=== PATIENT | male | born 1975 | race Caucasian/White ===

== ENCOUNTER 2022-01-15 19:48 | Emergency (ER) | payer SELFPAY ==
--- OUTSIDE RECORDS SUMMARY | 2022-01-15 20:20 | XMS REPORT | Clinical Summary ---
:1975 Author Organization [facility] Address [address] [place] [id number] Care Team Providers Name Role Phone Unavailable Primary Care Provider Unavailable Allergies Not on File Medications Not on file Active Problems Not on file Encounters Date Type Specialty Care Team Description 10/13/2021 Telephone Patient Access Services Albert Adams RN after 01/15/2021 Social History Tobacco Use Types Packs/Day Years Used Date Never Assessed Sex Assigned at Date Recorded Not on file Last Filed Vital Signs Not on file Plan of Treatment Not on file Results Not on fileafter 01/15/2021
--- OUTSIDE RECORDS SUMMARY | 2022-01-15 20:21 | XMS REPORT | Continuity of Care Document ---
:1975 Author Organization [facility] t Address [facility] [place] [address] Care Team Providers Name Role Phone PCP, NO Primary Care Physician Unavailable Albert Adams RN Attending Clinician Unavailable CURT KUNZ Attending Clinician Unavailable LEONEL MARTINO Attending Clinician Unavailable LIZETH HARMON Attending Clinician Unavailable TARAS BALTAZAR Attending Clinician Unavailable DR PREMA VO Attending Clinician Unavailable HELLEN THOMAS Attending Clinician Unavailable SAWYER RYAN Attending Clinician Unavailable KEVIN ACOSTA Attending Clinician Unavailable PATRICK AGARWAL Attending Clinician Unavailable RAYA ADAME Attending Clinician Unavailable ELISHA ROBERTSON Attending Clinician Unavailable CURT KUNZ Admitting Clinician Unavailable DR PREMA VO Admitting Clinician Unavailable Payers Payer Name Policy Type Policy Number Effective Date Expiration Date Lj samuels [id number] 1958 00:00:00 Problems Condition Condition Condition Status Onset Resolution Last Treating Co mments Source Name Details Category Date Date Treatment Clinician Date Periorbita Periorbita Disease Active M ethodi l l 9-15 st cellulitis cellulitis 00:00: Ho spita of left of left 00 l eye eye Allergies, Adverse Reactions, Alerts This patient has no known allergies or adverse reactions. Social History Social Habit Start Date Stop Date Quantity Comments Source History of tobacco [facility] use History [facility] Alcohol Binge Hospital History [facility] Alcohol Std Drinks Hospit al Alcohol intake 2020-11-11 2020-11-11 Lifetime [facility]ae[facility] 00:00:00 00:00:00 non-drinker Hospital (finding) History [facility] 2020-07-21 2020-07-21 1 [facility] Alcohol Frequency 00:00:00 00:00:00 Hospita l Cigarettes smoked 2018-10-21 2018-10-[address] current (pack per 00:00:00 00:00:00 Hospita l day) - Reported Tobacco use and 2018-10-21 2018-10-21 Smokeless [facility] exposure 00:00:00 00:00:00 tobacco non-user Hospital Sex Assigned At [birth year] [facility]00 [place] [facility] Center Smoking Status Start Date Stop Date Source Current some day smoker [facility] (LUF/ERIKA/SA) Current Heavy tobacco 2021-09-23 18:49:00 [facility] smoker Smokes tobacco daily 2021-08-31 07:06:00 [facility] (finding) Medications Ordered Filled Start Stop Current Ordering Indication Dosage Frequency Signature Comments Components Source Medication Medication Date Date Medication? Clinician (SIG) Name Name Naproxen No 275mg Twice A LISANDRO TU (Anaprox) - Day as S 275 Mg TAB 22:32: needed for H ealth 00 Pain Rivaroxaban No 1 As KATHLEEN U (Xarelto 5-06 Directed S Starter 22:32: Health Mateus) 1 Each 00 TAB.DS.PK Methylpredn 2021-0 No 1 As KATHLEEN U isolone 4-13 Directed S (Medrol 10:00: Health Pack) 21 00 Tab TAB Methylpredn 2021-0 No 1 As KATHLEEN U isolone 4-13 Directed S (Medrol 10:00: Health Pack) 21 00 Tab TAB Methylpredn 2021-0 No 1 As KATHLEEN U isolone 4-13 Directed S (Medrol 10:00: Health Pack) 21 00 Tab TAB Hctz/Lisino 2021-0 No 1 Daily for C HRISTU pril 4-13 Htn S (Zestoretic 09:09: Health 20-12.5) 1 00 Tab TAB Hctz/Lisino 2021-0 No 1 Daily for C HRISTU pril 4-13 Htn S (Zestoretic 09:09: Health 20-12.5) 1 00 Tab TAB Hctz/Lisino 2021-0 No 1 Daily for C HRISTU pril 4-13 Htn S (Zestoretic 09:09: Health 20-12.5) 1 00 Tab TAB Albuterol 2021-0 No 2 Every 4 LISANDRO TU 90 Mcg/Act 4-13 Hours as S Hfa Inh 09:08: needed for Heal th (Proair Hfa 00 Shortness Inh) 8.5 Gm Of HFA.AER.AD Breath/Whe ezing Benzonatate 0 No 200mg Three CHRI CAMPOS (Tessalon) 4-13 Times A S 200 Mg CAP 09:08: Day as Healt h 00 needed for Cough Albuterol 2021-0 No 2 Every 4 LISANDRO TU 90 Mcg/Act 4-13 Hours as S Hfa Inh 09:08: needed for Heal th (Proair Hfa 00 Shortness Inh) 8.5 Gm Of HFA.AER.AD Breath/Whe ezing Benzonatate 2021-0 No 200mg Three CHRI CAMPOS (Tessalon) 4-13 Times A S 200 Mg CAP 09:08: Day as Healt h 00 needed for Cough Albuterol 2021-0 No 2 Every 4 LISANDRO TU 90 Mcg/Act 4-13 Hours as S Hfa Inh 09:08: needed for Heal th (Proair Hfa 00 Shortness Inh) 8.5 Gm Of HFA.AER.AD Breath/Whe ezing Benzonatate No 200mg Three [facility]RI CAMPOS (Tessalon) 4-13 Times A S 200 Mg CAP 09:08: Day as Healt h 00 needed for Cough Albuterol Albuterol Yes [address] Q5[address]H [facility] 90 90 4-13 [facility] mcg/actuati mcg/actuati 00:00: [facility] on Aerosol on Aerosol 00 l (LUF/LI V/SA) Albuterol Albuterol Yes [address] [facility] 90 90 4-13 every 4 to [facility] mcg/actuati mcg/actuati 00:00: 6 hours as Memoria on Aerosol on Aerosol 00 needed. l (LUF/LI V/SA) Ibuprofen No 600mg Tid With CHR ISTU (Motrin) 3-02 Meals & Hs S 600 Mg TAB 19:22: as needed He alth 00 for Pain Methylpredn No 1 As KATHLEEN U isolone 3-02 Directed S (Medrol 19:22: Health Pack) 21 00 Tab TAB Methylpredn 0 No 1 As KATHLEEN U isolone 3-02 Directed S (Medrol 19:22: Health Pack) 21 00 Tab TAB Methylpredn 2021-0 No 1 As KATHLEEN U isolone 3-02 Directed S (Medrol 19:22: Health Pack) 21 00 Tab TAB Methylpredn 2021-0 No 1 As KATHLEEN U isolone 3-02 Directed S (Medrol 19:22: Health Pack) 21 00 Tab TAB Ibuprofen 0 2021- No 600mg Tid With CH RISTU (Motrin) 07-20 04-02 Meals & Hs S 600 Mg TAB 19:22: 00:00 as needed H ealth 00 :00 for Pain Ibuprofen 2021-0 2021- No 600mg Tid With CH RISTU (Motrin) 07-20 04-02 Meals & Hs S 600 Mg TAB 19:22: 00:00 as needed H ealth 00 :00 for Pain Ibuprofen 2021-0 2021- No 600mg Tid With CH RISTU (Motrin) 07-20 04-02 Meals & Hs S 600 Mg TAB 19:22: 00:00 as needed H ealth 00 :00 for Pain No known No No known Metho di medications 6-[address] 01:08: s Hospita 35 l allopurinol allopurinol Yes [address] 100 MG Oral 100 MG Oral L ukes Tablet Tablet Memoria l (LUF/LI V/SA) amlodipine amlodipine Yes 5mg 1xD [facility] 5 MG Oral 5 MG Oral [facility] Tablet Tablet [facility] (LUF/LI V/SA) aspirin 81 aspirin 81 Yes 81mg 1xD [facility] mg chewable mg chewable L ukes tablet tablet Memoria l (LUF/LI V/SA) atorvastati atorvastati Yes [address] n 40 MG n 40 MG [facility] Oral Tablet Oral Tablet M emoria l (LUF/LI V/SA) allopurinol allopurinol Yes [address] 100 MG Oral 100 MG Oral ONCE A DAY [facility] Tablet Tablet [facility] (LUF/LI V/SA) amlodipine amlodipine Yes 5mg 1xD orally C [facility] 5 MG Oral 5 MG Oral daily [facility] s Tablet Tablet Memoria l (LUF/LI V/SA) aspirin 81 aspirin 81 Yes 81mg 1xD orally C [facility] mg chewable mg chewable daily [facility] tablet tablet Memoria l (LUF/LI V/SA) atorvastati atorvastati Yes 80 Q2.00W BY MOUTH [facility] n 40 MG n 40 MG EVERY [facility] Oral Tablet Oral Tablet NIGHT AT [facility] BED TIME l (LUF/LI V/SA) Immunizations Ordered Immunization Filled Immunization Date Status Commen Source Name Name COVID-19 vaccine, 2020-11-26 Completed [facility] vector-nr, rS-Ad26, 00:00:00 PF, COVID-19 vaccine, 2020-11-26 Completed [facility] vector-nr, rS-Ad26, 00:00:00 PF, COVID-19 vaccine, 2020-11-26 Completed [facility] vector-nr, rS-Ad26, 00:00:00 PF, FLUCELVAX QUAD PF 2017-02-[address] 00:00:00 Hospital Pneumococcal 2017-02-03 Completed [facility] Conjugate 13-Valent 00:00:00 Hospi eugene Vital Signs Vital Name Observation Time Observation Value Comments Source Height 2021-10-12 08:42:00 182.88 CM Weight 2021-10-12 08:42:00 110 KG Height 2021-09-18 09:00:00 182.88 CM Weight 2021-09-18 08:24:00 115.1 KG Respiratory Rate 2021-10-12 11:46:00 16 /min [facility] (LUF/ERIKA/SA) O2% BldC Oximetry 2021-10-12 11:46:00 98 % [facility] (LUF/ERIKA/SA) BP Systolic 2021-10-12 11:46:00 147 mm[Hg] [facility] (LUF/ERIKA/SA) BP Diastolic 2021-10-12 11:46:00 106 mm[Hg] [facility] (LUF/ERIKA/SA) Heart Rate 2021-10-12 10:31:00 82 /min [facility] (F/ERIKA/SA) Body Temperature 2021-10-12 08:42:00 98.3 [degF] [facility] (LUF/ERIKA/SA) Pulse Rate 2021-10-12 08:42:00 78 /min [facility] (F/ERIKA/SA) Height 2021-10-12 08:42:00 72 [in_i] [facility] (LUF/ERIKA/SA) Weight 2021-10-12 08:42:00 110 kg [facility] (LUF/ERIKA/SA) BMI (Body Mass Index) 2021-10-12 08:42:00 33.2 kg/m2 [facility] (LUF/ERIKA/SA) BP Diastolic 2021-09-23 22:59:00 94 mm[Hg] [facility] BP Systolic 2021-09-23 22:59:00 154 mm[Hg] [facility] Heart Rate 2021-09-23 22:59:00 64 /min [facility] Respiratory rate 2021-09-23 22:59:00 19 /min [facility] Body Temperature 2021-09-23 22:59:00 97.9 [degF] [facility] BP Diastolic 2021-09-23 18:47:00 94 mm[Hg] [facility] BP Systolic 2021-09-23 18:47:00 154 mm[Hg] [facility] Heart Rate 2021-09-23 18:47:00 64 /min [facility] Respiratory rate 2021-09-23 18:47:00 19 /min [facility] Body Temperature 2021-09-23 18:47:00 97.9 [degF] [facility] Body Temperature 2021-09-18 16:51:00 98.4 [degF] [facility] (LUF/ERIKA/SA) Heart Rate 2021-09-18 16:01:00 67 /min [facility] (LUF/ERIKA/SA) Pulse Rate 2021-09-18 16:01:00 66 /min [facility] (LUF/ERIKA/SA) Respiratory Rate 2021-09-18 16:01:00 16 /min [facility] (LUF/ERIKA/SA) O2% BldC Oximetry 2021-09-18 16:01:00 97 % [facility] (LUF/ERIKA/SA) BP Systolic 2021-09-18 16:01:00 142 mm[Hg] [facility] (LUF/ERIKA/SA) BP Diastolic 2021-09-18 16:01:00 66 mm[Hg] [facility] (LUF/ERIKA/SA) Height 2021-09-18 09:00:00 72 [in_i] [facility] (LUF/ERIKA/SA) Weight 2021-09-18 08:24:00 115.1 kg [facility] (LUF/ERIKA/SA) BP Diastolic 2021-09-18 06:10:00 78 mm[Hg] [facility] BP Systolic 2021-09-18 06:10:00 122 mm[Hg] [facility] Heart Rate 2021-09-18 06:10:00 58 /min [facility] Respiratory rate 2021-09-18 06:10:00 16 /min [facility] 2021-09-18 06:10:00 98.0 [degF] [facility] BP Diastolic 2021-09-18 03:44:00 67 mm[Hg] [facility] BP Systolic 2021-09-18 03:44:00 117 mm[Hg] [facility] Heart Rate 2021-09-18 03:44:00 56 /min [facility] Respiratory rate 2021-09-18 03:44:00 12 /min [facility] BP Diastolic 2021-09-18 03:15:00 73 mm[Hg] [facility] BP Systolic 2021-09-18 03:15:00 105 mm[Hg] [facility] Heart Rate 2021-09-18 03:15:00 62 /min [facility] Respiratory rate 2021-09-18 03:15:00 13 /min [facility] BP Diastolic 2021-09-18 02:45:00 57 mm[Hg] [facility] BP Systolic 2021-09-18 02:45:00 99 mm[Hg] [facility] Heart Rate 2021-09-18 02:45:00 60 /min [facility] Respiratory rate 2021-09-18 02:45:00 14 /min [facility] BP Diastolic 2021-09-18 02:15:00 55 mm[Hg] [facility] BP Systolic 2021-09-18 02:15:00 102 mm[Hg] [facility] Heart Rate 2021-09-18 02:15:00 65 /min [facility] Respiratory rate 2021-09-18 02:15:00 11 /min [facility] BP Diastolic 2021-09-18 01:45:00 52 mm[Hg] [facility] BP Systolic 2021-09-18 01:45:00 90 mm[Hg] [facility] Heart Rate 2021-09-18 01:45:00 66 /min [facility] Respiratory rate 2021-09-18 01:45:00 12 /min [facility] BP Diastolic 2021-09-18 01:15:00 55 mm[Hg] [facility] BP Systolic 2021-09-18 01:15:00 105 mm[Hg] [facility] Heart Rate 2021-09-18 01:15:00 68 /min [facility] Respiratory rate 2021-09-18 01:15:00 18 /min [facility] Body Temperature 2021-09-18 01:15:00 98.0 [degF] [facility] BP Diastolic 2021-08-31 10:25:00 80 mm[Hg] [facility] BP Systolic 2021-08-31 10:25:00 150 mm[Hg] [facility] Heart Rate 2021-08-31 10:25:00 62 /min [facility] Respiratory rate 2021-08-31 10:25:00 16 /min [facility] Body Temperature 2021-08-31 10:25:00 97.4 [degF] [facility] BP Diastolic 2021-08-31 09:08:00 80 mm[Hg] [facility] BP Systolic 2021-08-31 09:08:00 150 mm[Hg] [facility] Heart Rate 2021-08-31 09:08:00 62 /min [facility] Respiratory rate 2021-08-31 09:08:00 16 /min [facility] BP Diastolic 2021-08-31 07:02:00 105 mm[Hg] [facility] BP Systolic 2021-08-31 07:02:00 191 mm[Hg] [facility] Heart Rate 2021-08-31 07:02:00 67 /min [facility] Respiratory rate 2021-08-31 07:02:00 23 /min [facility] Body Temperature 2021-08-31 07:02:00 97.4 [degF] [facility] BP Diastolic 2021-07-20 19:59:00 98 mm[Hg] [facility] BP Systolic 2021-07-20 19:59:00 155 mm[Hg] [facility] Heart Rate 2021-07-20 19:59:00 73 /min [facility] Respiratory rate 2021-07-20 19:59:00 20 /min [facility] Body Temperature 2021-07-20 19:59:00 97.8 [degF] [facility] BP Diastolic 2021-07-20 19:00:00 98 mm[Hg] [facility] BP Systolic 2021-07-20 19:00:00 155 mm[Hg] [facility] Heart Rate 2021-07-20 19:00:00 73 /min [facility] Respiratory rate 2021-07-20 19:00:00 20 /min [facility] Body Temperature 2021-07-20 19:00:00 97.8 [degF] [facility] BP Diastolic 2021-07-20 18:55:00 98 mm[Hg] [facility] BP Systolic 2021-07-20 18:55:00 155 mm[Hg] [facility] Heart Rate 2021-07-20 18:55:00 73 /min [facility] Respiratory rate 2021-07-20 18:55:00 20 /min [facility] Body Temperature 2021-07-20 18:55:00 97.8 [degF] [facility] Procedures Procedure Date / Time Performed Performing Clinician [facility] e ECG (electrocardiogram) 2021-09-23 00:00:00 [facility] X-ray of chest, single 2021-09-23 00:00:00 [facility] view X-ray of forearm, two 2021-09-23 00:00:00 [facility] Computed tomography 2021-09-23 00:00:00 [facility] angiography of pulmonary artery ECG (electrocardiogram) 2021-09-18 00:00:00 [facility] X-ray of chest, single 2021-09-18 00:00:00 [facility] view Hopd covid-19 spec collect 2021-09-18 00:00:00 [facility] X-ray of chest, single 2021-08-31 00:00:00 [facility] view ECG (electrocardiogram) 2021-08-31 00:00:00 [facility] Computed tomography of 2021-08-31 00:00:00 [facility] head or brain without contrast Plan of Care Planned Activity Planned Date Details Comments Source Future Scheduled 2022-01-13 HEPATITIS B VACCINES [facility] Test 04:10:23 (1 of 3 - 3-dose series) [code = HEPATITIS B VACCINES (1 of 3 - 3-dose series)] Future Scheduled 2022-01-13 COVID-19 VACCINE (#1) [facility] Test 04:10:23 [code = COVID-19 VACCINE (#1)] Future Scheduled 2022-01-13 Hepatitis C screening [facility] Test 04:10:23 (procedure) [code = 338572094] Future Scheduled 2022-01-13 Pneumococcal Vaccine: [facility] Test 04:10:23 Pediatrics (0 to 5 Years) and At-Risk Patients (6 to 64 Years) (2 - PPSV23 or PCV20) [code = Pneumococcal Vaccine: Pediatrics (0 to 5 Years) and At-Risk Patients (6 to 64 Years) (2 - PPSV23 or PCV20)] Future Scheduled 2022-01-13 COLONOSCOPY SCREENING [facility] Test 04:10:23 [code = COLONOSCOPY SCREENING] Future Scheduled 2022-01-13 INFLUENZA VACCINE [facility] Test 04:10:23 [code = INFLUENZA VACCINE] Encounters Start End Encounter Admission Attending Care Care Encounter Source Date/Time Date/Time Type Type Clinicians Facility Department ID 2021-10-13 2021-10-13 Telephone Bryan, [id number] 00:00:00 00:00:00 Albert [id number] i ty of S [id number] [place] [id number] [facility] 2021-10-12 2021-10-12 Inpatient 1 [facility] [id number] [facility] 08:23[facility]00 [facility] [address] ([address], V/SA) [place] [address] 2021-10-12 2021-10-12 Inpatient [place] [id number] [facility] St 00:00:00 00:00:00 [facility] [id number] [facility], [id number] [facility] [id number]F/[address], V/SA) [place] [address] 2021-10-02 2021-10-02 Emergency ER ARNIE MARTINO [id number] [facility] 01:35:00 05:48:00 LEONEL [id number] [facility] 2021-09-24 2021-09-25 Emergency E FAUSTINO, BL BL 7503 MHBL 19:50:00 04:10:00 [facility] 2021-09-23 2021-09-23 Emergency ER ARNIE BALTAZAR [id number] [facility] 18:42:00 22:57:00 TARAS [id number] [facility] 2021-09-23 2021-09-23 Departed JENELLE Coker [id number] [facility] 18:42:00 22:57:[address] 2021-09-18 2021-09-18 OTHER 3 MOPUR, [facility] [id number] 09:48:00 18:28:00 CHEST PAIN PREMA [facility] [address] ([address], V/SA) [place] [address] 2021-09-18 2021-09-18 Emergency ER ARNIE THOMAS [id number] [facility] 01:08:00 06:12:00 [facility] [id number] [facility] 2021-09-18 2021-09-18 Departed JENELLE Coker [id number] [facility] 01:08:00 06:12:[address] 2021-09-18 2021-09-18 Inpatient [facility] [id number] 00:00:00 00:00:00 [facility] [id number] [facility], [id number] Memor ia [id number] ([address]F/[address], V/[place]) [place] [address] 2021-09-18 2021-09-18 Inpatient [facility] [id number] 00:00:00 00:00:00 [facility] [id number] [facility], [id number] Memor ia [id number] ([address]F/[address] A[address], V/[place]) [place] [address] 2021-09-18 2021-09-18 Inpatient [facility] 1238 [id number] 00:00:00 00:00:00 [facility] [id number] [facility], [id number] Memor ia [address] [id number] ([address]F/LI A[address], V/[place]) [place] [address] 2021-09-18 2021-09-18 Inpatient [facility] OF [place] [id number] [facility] St 00:00:00 00:00:00 [facility] [id number] [facility], [id number] [facility] [id number] (LUF/SRAVANTHI MILLERE, V/[place]) [place] [address] 2021-08-31 2021-08-31 Emergency ER SAWYER RYAN ARNIE 16 [id number] [facility] 06:59:00 10:24:00 [id number] [facility] 2021-08-31 2021-08-31 Departed JENELLE Coker [id number] [facility] 06:59:00 10:24:[address] 2021-07-20 2021-07-20 Emergency ER ARNIE ACOSTA [id number] [facility] 18:23:00 20:00:00 KEVIN [id number] [facility] 2021-07-20 2021-07-20 Departed JENELLE Coker [id number] [facility] 18:23:00 20:00:[address] 2020-11-11 2020-11-12 Emergency STEFANO, [facility] 064 [id number] 64 [place] 00:00:00 00:00:00 PATRICK [address] 2020-07-20 2020-07-20 Emergency [facility] [place], [facility] [id number] [address] [place] 00:00:00 00:00:00 RAYA [address] 2020-06-27 2020-06-27 Emergency AILYN, [place] [id number] 749 [place] 00:00:00 00:00:00 ELISHA [address] Results Test Description Test Time Test Comments Results Result Comments Source URINALYSIS WITH MICROSCOPIC 2021-10-12 12:09:00 Test Item Value Reference Range Interpretation Comme nts Color (test code = UCOLR) Light-Yellow Clarity (test code = UCLAR) Clear Glucose (test code = UGLUC) >1000 NEGATIVE A Bilirubin (test code = NEGATIVE NEGATIVE N UBILI) Ketones (test code = UKET) NEGATIVE NEGATIVE N Specific [place] (test code 1.020 1.005-1.030 A = USPGR) Blood (test code = UBLD) Small NEGATIVE A PH (test code = UPH) 6.5 4.5-8.0 A Protein (test code = UPROT) 100 NEGATIVE A Urobilinogen (test code = U 0.2 See_Comment N [Automated message] The UROB) system which ge nerated this result tra nsmitted reference range : 0.2. The reference range was not used to interpr et this result as lydia l/abnormal. Nitrite (test code = UNITR) NEGATIVE NEGATIVE N Leukocyte Esterase (test Small NEGATIVE A code = ULEUK) RBC (test code = RBCUR) 6-10 0-5 A WBC (test code = WBCUR) 11-20 0-5 A Bacteria (test code = UBACT) 2+ None Seen,Trace A Mucous (test code = UMUC) TRACE None Seen A Squamous Epithelial (test 31-40 0-10 A code = SQEP) Non-squamous Epithelial 3 NONE SEEN A (test code = NSE) AMYLASE, [id number] 11:25:00 Test Item Value Reference Range Interpretation Comments Amylase (test code = AMYL) 68 U/L 25-115 [id number] 11:25:00 Test Item Value Reference Range Interpretation Comments Lipase (test code = LIPA) 74 U/L 73-393 HEPATIC FUNCTION PANEL (LIVER)2021-10-12 11:25:00 Test Item Value Reference Range Interpretation Comments T Protein (test code = TP) 7.9 gm/dl 6.4-8.2 Albumin (test code = ALB) 3.7 gm/dl 3.4-5.0 AST (SGOT) (test code = AST) 14 U/L 15-37 L ALT (SGPT) (test code = ALT) 31 U/L 13-61 Alkaline Phos (test code = ALKP) 56 U/L 45-117 Total Bilirubin (test code = TBIL) 0.4 mg/dl 0.2-1.0 Direct Bilirubin (test code = <0.1 mg/dl 0.0-0.3 N DBIL) Indirect Bilirubin (test code = 0.4 mg/dl 0.0-1.1 IBIL) STAT LAB CBC WITH AUTO [id number] 10:58:00 Test Item Value Reference Range Interpretation Comments WBC (test code = WBC) 7.56 10\\S\\3/ul 4.80-10.80 RBC (test code = RBC) 4.90 10\\S\\6/ul 4.70-6.10 Hemoglobin (test code = HGB) 14.9 gm/dl 14.0-18.0 Hematocrit (test code = HCT) 42.7 % 42.0-50.0 MCV (test code = MCV) 87.1 fL 80.0-94.0 MCH (test code = MCH) 30.4 pg 27.0-31.0 MCHC (test code = MCHC) 34.9 gm/dl 33.0-37.0 Platelet (test code = PLT) 312 10\\S\\3/ul 130-400 RDW (test code = RDWVC) 12.5 % 11.5-14.5 MPV (test code = MPV) 8.5 fL 7.4-10.4 A NE% (test code = NE) 64.4 % 42.0-75.0 LY% (test code = LY) 18.0 % 13.0-42.0 MO% (test code = MO) 7.1 % 4.0-14.0 EO% (test code = EO) 8.5 % 1.0-3.0 H BA% (test code = BA) 0.9 % 1.0-3.0 L IG% (test code = IG%) 1.1 % 0.0-0.4 H STAT LAB CHEM [id number] 10:58:00 Test Item Value Reference Range Interpretation Comments Sodium (test code = NA) 135 mmol/l 138-146 L Potassium (test code = K) 4.3 mmol/l 3.5-4.9 IONIZED CALCIUM (test code = ICA) 1.15 1.12-1.32 AA Chloride (test code = CL) 105 mmol/l 98-109 Glucose (test code = GLU) 113 mg/dl 70-105 H Creatinine (test code = CREA) 0.7 mg/dl 0.6-1.3 BUN (test code = BUN) 13 mg/dl 6-17 CO2 (test code = CO2) 23.0 mmol/l 24.0-29.[address] ABDOMEN/PELVIS W/O [id number] 09:55:19 [place] [facility] (LU/[facility]/SA)Name: SÁNCHEZ SHEPHERD : 1975 Sex: MProcedure: CT ABDOMEN/PELVIS W/O CONTRASTOrder Date: 10/12/2021 9:06 AMOrdering Provider: CURT GALLEGOlinical Indication: [id number]: Lower abdominal painComparison: Ultrasound September 18, 2021TECHNIQUE:CT of the abdomen and pelvis WITHOUT intravenous contrast. The abdomen andpelvis were scanned utilizing a multidetector helical scanner from the diaphragmto the lesser trochanter. Coronal and sagittal reformations were obtained.This exam was performed according to the our departmental dose-optimizationprogram which includes automated exposure control, adjustment of the mA and/orkV according to patient s ize and/or use of iterative reconstruction techniques.DISCUSSION:ABSENCE OF INTRAVENOUS CONTRAST DECREASES SENSITIVITY FOR DETECTION OF FOCALLESIONS AND VASCULAR PATHOLOGY.LOWER THORAX: Normal.HEPATOBILIARY: No focal hepatic lesions. There is diffuse hepatic steatosis.Gallbladder is surgically absent.No biliary ductal dilatation.SPLEEN: No splenomegaly.PANCREAS: No focal masses or ductal dilatation.ADRENALS: 1.7 cm nodule in the left adrenal gland. Internal Hounsfield units areless than 10. Right adrenal gland is normal.KIDNEYS/URETERS: There is a solid appearing exophytic mass arising from theupper pole of the left kidney and measures approximately 4.1 x 3.5 cm.There is an additional subcentimeter hyperdense focus arising from the lowerpole of the left kidney and is also exophytic.Right kidney is normal in size. No hydronephrosis in either kidneys is present.PELVIC ORGANS/BLADDER: Unremarkable.PERITONEUM / RETROPERITONEUM: No free air or fluid.LYMPH NODES: Large pathologic lymph node versus metastatic focus in the rightcommon iliac chain measuring 7.3 x 5.7 cm. Additional pathologic right internaliliac lymph node which measures almost 1.5 cm in short axis. Similar pathologicadenopathy in the right common femoral chain.VESSELS: Unremarkable.GI TRACT: No distention or wall thickening.BONES AND SOFT TISSUES: No acute abnormality.IMPRESSION:Stable to minimal increase in size of a solid mass arising from the upper poleof the left kidney and is strongly suspicious for renal cell carcinoma.Additional subcentimeter lesion arising from the lower pole of the left kidneymay represent a complex cyst or solid mass. Findings could be confirmed with CTrenal mass protocol.Extensive pathologic pelvic adenopathy, likely metastatic.Left adrenal nodule favored to represent a lipid poor adenoma. Appearance isless favored to represent a metastatic focus.Other nonemergent findings, as above.This final report was electronically signed by Dr Annel Hernandez MD 29:49 AMDictated By: MALU HERNANDEZKDate: 09:49COMPLEMENT COMPONENT [id number] 10:26:00 Test Item Value Reference Range Interpretation Comments COMPLEMENT C4, SERUM (test code = 30 mg/dL 12-38 N 039373) PERFORMED AT: [facility] [address] [id number] IMPLEMENTATION ADVISOR: Wilfredo Grullon MD PHONE: [phone] dimer DDU [id number] 20:01:00 Test Item Value Reference Range Interpretation Comments D-Dimer (test code = 57047-7) 636 0-500 [facility] [id number]-[id number] 20:01:00 Test Item Value Reference Range Interpretation Comments Sodium Level (test code = 2951-2) 141 136-145 [facility] HealthSerum or plasma potassium measurement (moles/volume)2021-09-23 20:01:00 Test Item Value Reference Range Interpretation Comments Potassium Level (test code = 2823-3) 4.0 3.5-5.1 [facility] or plasma chloride measurement (moles/volume)2021-09-23 20:01:00 Test Item Value Reference Range Interpretation Comments Chloride Level (test code = 2075-0) 106 98-107 [facility]um or plasma total carbon dioxide measurement (moles/volume) 2021-09-23 20:01:00 Test Item Value Reference Range Interpretation Comments Carbon Dioxide Level (test code = -2027-) [facility] or plasma anion gap determination (moles/volume)2021-09-23 20:01:00 Test Item Value Reference Range Interpretation Comments Anion Gap (test code = 48821-8) 13 8-18 [facility] or plasma urea nitrogen measurement (mass/volume)2021-09-23 20:01:00 Test Item Value Reference Range Interpretation Comments Blood Urea Nitrogen (test code = 02-08 3094-0) [facility] or plasma creatinine measurement (mass/volume)2021-09-23 20:01:00 Test Item Value Reference Range Interpretation Comments Creatinine (test code = 2160-0) 0.8 0.7-1.3 [facility] HealthGFR/BSA.pred SerPl [id number] 20:01:00 Test Item Value Reference Range Interpretation Comments Estimat Glomerular Filtration Rate 111 73-125 (test code = 03245-5) [facility]Serum or plasma urea nitrogen/creatinine mass [id number] 20:01:00 Test Item Value Reference Range Interpretation Comments BUN/Creatinine Ratio (test code = 13 3097-3) [facility] or plasma glucose measurement (mass/volume)2021-09-23 20:01:00 Test Item Value Reference Range Interpretation Comments Glucose Level (test code = 2345-7) 130 60-100 [facility] HealthOsmolality SerPl [id number] 20:01:00 Test Item Value Reference Range Interpretation Comments Calculated Osmolality (test code = 282 94625-1) [facility] or plasma calcium measurement (mass/volume)2021-09-23 20:01:00 Test Item Value Reference Range Interpretation Comments Calcium Level (test code = 99490-6) 9.5 8.4-10.2 [facility] or plasma total bilirubin measurement (mass/volume) 2021-09-23 20:01:00 Test Item Value Reference Range Interpretation Comments Total Bilirubin (test code = 1974-2) 0.3 0.2-1.2 [facility] or plasma aspartate aminotransferase measurement (enzymatic activity/volume)2021-09-23 20:01:00 Test Item Value Reference Range Interpretation Comments Aspartate Amino Transf (AST/SGOT) (test 15 5-34 code = 1920-8) [facility] or plasma alanine aminotransferase measurement (enzymatic activity/volume)2021-09-23 20:01:00 Test Item Value Reference Range Interpretation Comments Alanine Aminotransferase (ALT/SGPT) 18 0-55 (test code = 1742-6) [facility]Serum or plasma protein measurement (mass/volume)2021-09-23 20:01:00 Test Item Value Reference Range Interpretation Comments Total Protein (test code = 2885-2) 7.1 6.4-8.3 [facility] or plasma albumin measurement (mass/volume)2021-09-23 20:01:00 Test Item Value Reference Range Interpretation Comments Albumin (test code = 1751-7) 3.9 3.5-5.0 [facility] HealthSerum globulin measurement by calculation (mass/volume)2021-09-23 20:01:00 Test Item Value Reference Range Interpretation Comments Globulin (test code = 48337-5) 3.2 [facility] or plasma albumin/globulin mass [id number] 20:01:00 Test Item Value Reference Range Interpretation Comments Albumin/Globulin Ratio (test code = 1.2 1759-0) [facility]um or plasma alkaline phosphatase measurement (enzymatic activity/volume)2021-09-23 20:01:00 Test Item Value Reference Range Interpretation Comments Alkaline Phosphatase (test code = 57 40-150 6768-6) [facility] [id number] 20:01:00 Test Item Value Reference Range Interpretation Comments Troponin I (test code = 50071-6) < 0.01 0.00-0.03 [facility] CenterAutomated blood leukocyte count (number/volume)2021-09-23 20:01:00 Test Item Value Reference Range Interpretation Comments White Blood Count (test code = 6690-2) 7.5 4.5-11.5 [facility] erythrocytes automated count (number/volume)2021-09-23 20:01:00 Test Item Value Reference Range Interpretation Comments Red Blood Count (test code = 789-8) 4.33 4.4-6.2 [facility] HealthBlood hemoglobin measurement (mass/volume)2021-09-23 20:01:00 Test Item Value Reference Range Interpretation Comments Hemoglobin (test code = 718-7) 12.9 13.0-17.5 [facility] HealthAutomated blood hematocrit (volume fraction)2021-09-23 20:01:00 Test Item Value Reference Range Interpretation Comments Hematocrit (test code = 4544-3) 38.8 39.0-52.5 [facility] HealthAutomated erythrocyte mean corpuscular volume (MCV) measurement 2021-09-23 20:01:00 Test Item Value Reference Range Interpretation Comments Mean Corpuscular Volume (test code = 89.6 80-94 787-2) [facility] HealthAutomated erythrocyte mean corpuscular hemoglobin (mass per erythrocyte)2021-09-23 20:01:00 Test Item Value Reference Range Interpretation Comments Mean Corpuscular Hemoglobin (test code 29.8 27.0-33.0 = 785-6) [facility] HealthAutomated erythrocyte mean corpuscular hemoglobin concentration measurement (mass/volume)2021-09-23 20:01:00 Test Item Value Reference Range Interpretation Comments Mean Corpuscular Hemoglobin Concent 33.2 33.0-37.0 (test code = 786-4) [facility] HealthAutomated erythrocyte distribution width [id number] 20:01:00 Test Item Value Reference Range Interpretation Comments Red Cell Distribution Width (test code 13.3 10.7-14.5 = 788-0) [facility] HealthAutomated blood platelet count (count/volume)2021-09-23 20:01:00 Test Item Value Reference Range Interpretation Comments Platelet Count (test code = 777-3) 370 150-450 [facility]Automated blood platelet mean volume [id number] 20:01:00 Test Item Value Reference Range Interpretation Comments Mean Platelet Volume (test code = 8.4 5.7-10.7 80326-4) [facility] HealthAutomated blood neutrophil count as percentage of total [id number] 20:01:00 Test Item Value Reference Range Interpretation Comments Neutrophils (%) (Auto) (test code = 51 47-75 770-8) [facility] HealthAutomated blood lymphocyte count as percentage of total [id number] 20:01:00 Test Item Value Reference Range Interpretation Comments Lymphocytes (%) (Auto) (test code = 25 25-44 736-9) [facility]Automated blood monocyte count as percentage of total leukocytes 2021-09-23 20:01:00 Test Item Value Reference Range Interpretation Comments Monocytes (%) (Auto) (test code = 7 3-10 5905-5) [facility]Automated blood eosinophil count as percentage of total [id number] 20:01:00 Test Item Value Reference Range Interpretation Comments Eosinophils (%) (Auto) (test code = 16 0-7 713-8) [facility] HealthAutomated blood basophil count as percentage of total leukocytes 2021-09-23 20:01:00 Test Item Value Reference Range Interpretation Comments Basophils (%) (Auto) (test code = 1 0-1 706-2) [facility] HealthAutomated blood neutrophil count (number/volume)2021-09-23 20:01:00 Test Item Value Reference Range Interpretation Comments Neutrophils # (Auto) (test code = 3.8 1.3-6.7 751-8) [facility] HealthAutomated blood lymphocyte count (number/volume)2021-09-23 20:01:00 Test Item Value Reference Range Interpretation Comments Lymphocytes # (Auto) (test code = 1.9 1.4-4.1 731-0) [facility] HealthBlood monocytes automated count (number/volume)2021-09-23 20:01:00 Test Item Value Reference Range Interpretation Comments Monocytes # (Auto) (test code = 742-7) 0.6 0-1.3 [facility] HealthAutomated blood eosinophil [id number] 20:01:00 Test Item Value Reference Range Interpretation Comments Eosinophils # (Auto) (test code = 1.2 0-0.8 711-2) [facility] HealthAutomated blood basophil count (number/volume)2021-09-23 20:01:00 Test Item Value Reference Range Interpretation Comments Basophils # (Auto) (test code = 704-7) 0.1 0-0.1 [facility] comment [id number] 20:01:00 Test Item Value Reference Range Interpretation Comments Manual Differential (test code = Not Ind 8265-1) [facility] HealthANCA [id number] 07:59:00 Test Item Value Reference Range Interpretation Comments ANTIMYELOPEROXIDASE (MPO) <9.0 U/mL 0.0-9.0 N ABS (test code = 333757) ANTIPROTEINASE 3 (NV-3) <3.5 U/mL 0.0-3.5 N ABS (test code = 877836) CYTOPLASMIC (C-ANCA) <1:20 titer See_Comment N [Autom ated (test code = 641528) message ] The system which generated this result transmitted reference range : Neg:<1:20. The reference range was not used to interpret this result as normal/abnormal . PERINUCLEAR (P-ANCA) <1:20 titer See_Comment N The pre sence of (test code = 097577) positiv e fluorescence exhibiting P-AN CA or C-ANCA patte rns alone is not specific for th e diagnosis of Demetra's Granulomatosis (WG) or microscopic polyangiitis. Decisions about treatment shoul d not be based so princess on ANCA IFA results. The International [employer] NCA [employer] Consensus recommends foll ow up testing of positive sera w ith both NV-3 and MPO-ANCA enzyme immunoassays. A s many as 5% seru m samples are positive only b y EIA. Ref. AM J Clin Pathol 1999;111:507-51 3. [Automated mess age] The system [employer] generated this result transmit jayro reference range : Neg:<1:20. The reference range was not used to interpret this result as normal/abnormal . ATYPICAL PANCA (test code <1:20 titer See_Comment N Th e atypical pANCA = 571842) pattern has bee n observed in a significant percentage of patients with ulcerative coli tis, primary scleros ing cholangitis and autoimmune hepatitis. [Automated mess age] The system [employer] generated this result transmit jayro reference range : Neg:<1:20. The reference range was not used to interpret this result as normal/abnormal . PROTEIN, TOTAL AND PROTEIN [id number] 07:59:00 Test Item Value Reference Range Interpretation Comments PROTEIN, TOTAL, 7.0 g/dL 6.0-8.5 N BLOOD (test code = 496518) ALBUMIN (test 3.7 g/dL 2.9-4.4 N code = 148552) IJEGZ-4-YIEUVUEO 0.2 g/dL 0.0-0.4 N (test code = 625787) GRYVL-4-EHPXWPMH 0.8 g/dL 0.4-1.0 N (test code = 990136) BETA GLOBULIN 1.2 g/dL 0.7-1.3 N (test code = 315843) GAMMA GLOBULIN 1.1 g/dL 0.4-1.8 N (test code = 415518) M-SPIKE (test Not Observed Not Observed N code = 539755) g/dL GLOBULIN, TOTAL 3.3 g/dL 2.2-3.9 N (test code = 714903) A/G RATIO (test 1.1 0.7-1.7 N code = 671349) PLEASE NOTE: Comment Protein (test code = electrophoresis scan 974593) will follow via computer, mail, or certified welding inspector deliver y. PERFORMED AT: [facility] [id number] IMPLEMENTATION ADVISOR: Wilfredo Grullon MD PHONE: [phone] PERFORMED AT: [facility] [id number] IMPLEMENTATION ADVISOR: MALKA Miles MD PHONE: [phone] COMPONENT [id number] 10:19:00 Test Item Value Reference Range Interpretation Comments COMPLEMENT C3, SERUM (test code = 184 mg/dL 82-167 H 067176) PERFORMED AT: [facility] [id number] IMPLEMENTATION ADVISOR: Wilfredo Grullon MD PHONE: [phone] BASEMENT MEMBRANE ANTIBODY (IGG)2021-09-20 08:28:00 Test Item Value Reference Range Interpretation Comments ANTIGLOMERULAR BM AB (test 3 units 0-20 N Negative 0 - 20 code = 846468) Weak Positive 21 - 30 Moderate to Strong Positive >30 PERFORMED AT: [facility] [id number] IMPLEMENTATION ADVISOR: David Richardson MD PHONE: [phone], TOTAL (CH50) 2021-09-20 07:15:00 Test Item Value Reference Range Interpretation Comments COMPLEMENT, TOTAL >60 U/mL >41 N Age Male Female 1 - 30 (CH50) (test code = days Not Estab. Not 435449) Estab. 31 days - 6 months >32 >20 7 months - 17 years >39 >39 >17 years >41 >41 * *NOTE: The adult (">17 years") reference inter chad range is used t o flag abnormals on th is report. If the patient is 17 years old or younger, use th e table above to determ ine out of range values . PERFORMED AT: [facility] [address] [id number] IMPLEMENTATION ADVISOR: David Richardson MD PHONE: [phone] 16:51:00 Test Item Value Reference Range Interpretation Comments Sodium (test code = 135 mmol/l 136-146 L NA) Potassium (test 3.4 mmol/l 3.5-5.1 L code = K) Chloride (test code 101 mmol/l 98-107 = CL) Calcium (test code 8.4 mg/dl 8.5-10.1 L = CALC) CO2 (test code = 30 mmol/l 21-32 CO2) Glucose (test code 96 mg/dl 74-106 = GLU) BUN (test code = 45.0 mg/dl 7.0-18.0 H BUN) Creatinine (test 2.4 mg/dl 0.5-1.3 H code = CREA) EGFR if 38 Turkish (test code mL/min/1.73m\\ = EGFRAA) S\\2 EGFR if Non- 31 Estimate d Glomerular Turkish (test code mL/min/1.73m\\ Filtrat ion Rate (eGFR) = EGFRNA) S\\2 Reference Inter vals Decision Points for 18 years and older and average body ma ss: >= 60 Does not ex clude kidney disease. 30 - 59 Suggests mod erate chronic kidney disease and indicates t he need for further investigation including asses sment of proteinuria and cardiovascular factors. < 30 U sually indicates a nee d for referral for assessment and management of c hronic kidney failure. HIGH SENSITIVITY [id number] 16:51:00 Test Item Value Reference Range Interpretation Comments HIGH SENSITIVITY 36.1 pg/ml 0.0-53.0 CHANGE IN T EST METHOD TROPONIN (test code = Radha harris in the test TNIH) method for Trop onin has gone into e ffect. We now test for High Sensitivity Tro ponin. The new units o f measure are pg/ mL, and the new 99t h percentile cuto ff of 34 pg/mL for FE MALE and 53 pg/mL fo r MALE. New criti bridgett values will be called for any troponi n greater than or equal to 500 pg/mL. PROTEIN/CREATNINE RATIO, Random [id number] 14:13:00 Test Item Value Reference Range Interpretation Comments Creatinine Urine Random (test 177.0 mg/dl 10.0-300.0 code = CREAR) Protein, Random Urine (test code 31.5 mg/dl 0.0-11.9 H = PROTU) Protein-Creatinine Ratio, Urine 0.18 % 0.00-0.20 (test code = PCRATIO) DRUG SCREEN [id number] 13:36:00 Test Item Value Reference Range Interpretation Comments Amphetamines (test code POS = AMPHET) BARBITUATES (test code = NEG DARCY) Benzodiazepines (test NEG code = BENZO) Cocaine (test code = NEG MAMADOU) Methadone (test code = NEG MTD) Opiates (test code = NEG OPIAT) PHENCYCLIDINE, PCP (test NEG The following table code = PCP) provides an int erpretive guide for the D rugs of Abuse ran on Siemens Medway analyzer listed there in: Amphe tamines < 1000 ng/ml = Ne gative Barbituates < 2 00 ng/ml = Negative Benzodiazapines < 200 ngml = Negative Cocaine < 300 ng/ml = N egative Methadone < 300 ng/ml = Negative Opiate < 300 ng/ml = Negativ e PCP < 25 ng/ml = Nega tive THC < 50 ng/ml = Ne gative Results equal t o or greater than above cut-off values = Presumptive Pos itive. Confirmation of Presumptive Pos itive results are jyoti ilable upon request. Cannabinoids, THC (test NEG code = THC) [id number] 12:37:00 Test Item Value Reference Range Interpretation Comments CPK (test code = CPK) 144 U/L 26-308 HIGH SENSITIVITY [id number] 12:36:00 Test Item Value Reference Range Interpretation Comments HIGH SENSITIVITY 52.5 pg/ml 0.0-53.0 CHANGE IN T EST METHOD TROPONIN (test code = A arguello ge in the test TNIH) method for Trop onin has gone into e ffect. We now test for High Sensitivity Tro ponin. The new units o f measure are pg/ mL, and the new 99t h percentile cuto ff of 34 pg/mL for FE MALE and 53 pg/mL fo r MALE. New criti bridgett values will be called for any troponi n greater than or equal to 500 pg/mL. HEPATITIS PANEL (AMA 16139)2021-09-18 11:09:00 Test Item Value Reference Range Interpretation Comments FT (test code = Negative (qualifier Negative N HAVIGM) value) FT (test code = Negative (qualifier Negative N HBCIM) value) FT (test code = Negative (qualifier Negative N HBSAG) value) FT (test code = HCV) Negative (qualifier Negative N value) PTH INTACT (IH)2021-09-18 11:09:00 Test Item Value Reference Range Interpretation Comments PTH, INTACT (test code = PTH) 151 18-88 H US RENAL & BLADDER (KIDNEYS)2021-09-18 10:44:25 [facility] ([facility]/)Name: SÁNCHEZ SHEPHERD : 1975 Sex: MProcedure: US RENAL & BLADDER (KIDNEYS)Order Date: 09/18/2021 8:18 AMOrdering Provider: SWATHI SU .Clinical Indication: N18.9: CHRONIC KIDNEY DISEASE, UNSPECIFIEDComparison: NoneTechnique: Real-time ultrasonography was obtained over the kidneys and urinarybladder and district sales representative images were recorded.Findings:The right kidney is normal in size and contour.There is normal renal cortical thickness and echogenicity.There are no masses, calculi, or hydronephrosis.The left kidney is normal in size and contour.There is normal renal cortical thickness and echogenicity.There are no calculior hydronephrosis.There is a well-circumscribed solid mass arising from the interpolar regionmeasuring 3.9 x 3.6 cm. There is increased vascularity associated with the mass.There are no bladder calculi, masses, or focal wall thickening.Impression:1. 3.9 cm solid hypervascular mass arising from the inte rpolar region of theleft kidney. This is suspicious for neoplasm. Recommend correlation with CT scanof the abdomen and pelvis before and after IV contrast. If patient's abnormalrenal functions are deemed to be reversible, would recommend waiting until renalfunction improves so IV contrast can be admini stered.2. No other masses.3. No calculi or hydronephrosis.4. No other significant findings.This final report was electronically signed by Dr Clement Myrick MD 0:39 AMDictated By: CLEMENT MYRICK.Date: 09/18/2021 10:39 GLYCOSALATED [id number] 10:19:00 Test Item Value Reference Range Interpretation Comments Hemoglobin A1C (test 6.1 % 4.2-6.3 A code = GLYCO) Mean Plasma Glucose 140 mg/dl 90-180 WHEN NAMAN T RESULTS FOR (test code = MPG) A1C EXCEED 14.0, THE LINEAR LIMIT OF THE INSTRUMENT, THE CALCULATED RESU LT FOR THE MEAN GLUCOS E IS NOT RELIABLE. XR CHEST AP/PA 1 [id number] 10:11:24 [facility] ([facility])Name: SÁNCHEZ SHEPHERD : 1975 Sex: MProcedure: XR CHEST AP/PA 1 VIEWOrder Date: 09/18/2021 9:01 AMOrdering Provider: SWATHI SU .Clinical Indication: shortness of breath or wheezingComparison: NoneFindings:Cardiac size is magnified by projection.Pulmonary vasculature is normal.Mediastinal contour is normal.Aortic contour is normal.No acute infiltrates or effusions.There is no mass or pneumothorax.There is no evidence of active tuberculosis.There is no acute skeletal abnormality.Impression: Negative AP view of the chest.This final report was electronically signed by Dr Clement Myrick MD 0:05 AMDictated By: CLEMENT MYRICK.Date: 09/18/2021 10:[id number] 09:56:00 Test Item Value Reference Range Interpretation Comments Phosphorus (test code = PHOS) 7.6 mg/dl 2.5-4.9 H [id number] 09:56:00 Test Item Value Reference Range Interpretation Comments Ferritin (test code = FERR) 88.4 ng/ml 26.0-388.0 IRON [id number] 09:56:00 Test Item Value Reference Range Interpretation Comments Iron (test code = FETOT) 62 ug/dl 65-175 L TIBC (test code = TIBC) 317 ug/dl 250-450 Iron Saturation (test code = FESAT) 20 % 16-62 TSH (Ultra Sensitive)2021-09-18 09:56:00 Test Item Value Reference Range Interpretation Comments TSH (test code = TSH) 1.60 mIU/L 0.35-3.74 HIGH SENSITIVITY [id number] 09:56:00 Test Item Value Reference Range Interpretation Comments HIGH SENSITIVITY 65.3 pg/ml 0.0-53.0 H CHANGE IN T EST METHOD TROPONIN (test code = Radha harris in the test TNIH) method for Trop onin has gone into e ffect. We now test for High Sensitivity Tro ponin. The new units o f measure are pg/ mL, and the new 99t h percentile cuto ff of 34 pg/mL for FE MALE and 53 pg/mL fo r MALE. New criti bridgett values will be called for any troponi n greater than or equal to 500 pg/mL. VITAMIN [id number] 09:56:00 Test Item Value Reference Range Interpretation Comments Vitamin D (test code = 18.99 VITAM IN D NORMAL RANGES: TVITD) Deficient <20 I nsufficient 20-<30 Sufficie nt 30-100 Potential Toxic ity >100 [id number] 09:56:00 Test Item Value Reference Range Interpretation Comments Magnesium (test code = MG) 2.9 mg/dl 1.6-2.6 H [id number] 09:56:00 Test Item Value Reference Range Interpretation Comments Sodium (test code = 134 mmol/l 136-146 L NA) Potassium (test 3.3 mmol/l 3.5-5.1 L code = K) Chloride (test code 100 mmol/l 98-107 = CL) Calcium (test code 8.3 mg/dl 8.5-10.1 L = CALC) CO2 (test code = 27 mmol/l 21-32 CO2) Glucose (test code 106 mg/dl 74-106 = GLU) BUN (test code = 51.0 mg/dl 7.0-18.0 H BUN) Creatinine (test 3.4 mg/dl 0.5-1.3 H code = CREA) T Protein (test 7.7 gm/dl 6.4-8.2 code = TP) Albumin (test code 3.6 gm/dl 3.4-5.0 = ALB) AST (SGOT) (test 17 U/L 15-37 code = AST) ALT (SGPT) (test 28 U/L 13-61 code = ALT) Alkaline Phos (test 58 U/L 45-117 code = ALKP) A/G Ratio (test 0.9 % 1.1-2.2 L code = AGRAT) Total Bilirubin 0.9 mg/dl 0.2-1.0 (test code = TBIL) Globulin (test code 4.1 gm/dl 2.3-3.5 H = GLOBU) Calcium, Corrected 8.6 mg/dl 8.4-10.2 Various f ormulas exist (test code = for corrected s denice CALCCORR) calcium results , each yielding differ ent values. This co rrected result was base d on the formula: Co rrected Calcium = Serum Calcium + [0.8 * ( 4 - SerumAlbumin)] EGFR if 25 Turkish (test code mL/min/1.73m\\ = EGFRAA) S\\2 EGFR if Non- 21 Estimate d Glomerular Turkish (test code mL/min/1.73m\\ Filtrat ion Rate (eGFR) = EGFRNA) S\\2 Reference Inter vals Decision Points for 18 years and older and average body ma ss: >= 60 Does not exc lude kidney disease. 30 - 59 Suggests mod erate chronic kidney disease and indicates t he need for further investigation including asses sment of proteinuria and cardiovascular factors. < 30 U sually indicates a nee d for referral for assessment and management of c hronic kidney failure. URIC [id number] 09:56:00 Test Item Value Reference Range Interpretation Comments Uric Acid (test code = URICA) 12.0 mg/dl 3.5-7.2 H CORONARY [id number] 09:56:00 Test Item Value Reference Range Interpretation Comments Triglycerides (test 181 mg/dl 0-149 H Trig. In terpretation code = TRIG) Guide: Normal: < 150 mg/dl Borderlin e High: 150 - 199 mg/dl High: 200 - 499 mg/dl Very High: >= 500 mg /dl Cholesterol (test code 232 mg/dl 0-200 H = CHOL) HDL (test code = HDL) 42 mg/dl 35-86 dLDL (test code = 181 mg/dl 0-99 H Direct LDL DILDL) Intrepretations : Optimal: <100 m g/dl Suspect: 100 - 129 mg/dl Border[place] e: 130 - 159 mg/dl Hig h: 160 - 189 mg/dl Jac y High: >190 mg/dl Risk Factor (test code 5.5 0.0-5.0 H Risk Factor Men Women = RFACT) Risk Factor 3. 4 3.3 1/2 Average 5.0 4.4 Average 9.6 7.1 2X Average 24.0 11 .0 3X Average vLDL (test code = 36 mg/dl 30-60 VLDL) CBC WITH AUTO [id number] 09:23:00 Test Item Value Reference Range Interpretation Comments WBC (test code = 8.06 10\\S\\3/ul 4.80-10.80 WBC) RBC (test code = 4.58 10\\S\\6/ul 4.70-6.10 L RBC) Hemoglobin (test 13.6 gm/dl 14.0-18.0 L code = HGB) Hematocrit (test 40.6 % 42.0-50.0 L code = HCT) MCV (test code = 88.6 fL 80.0-94.0 MCV) MCH (test code = 29.7 pg 27.0-31.0 MCH) MCHC (test code = 33.5 gm/dl 33.0-37.0 MCHC) RDW (test code = 13.2 % 11.5-14.5 RDWVC) Platelet (test code 395 10\\S\\3/ul 130-400 = PLT) MPV (test code = 8.9 fL 7.4-10.4 A "NOT MEASUR ED" MPV) RESULTS ARE DIS PLAYED WHEN THE INSTRU MENT HAS A SUPPRESSE D OR UNREPORTABLE RE SULT. THIS WILL MOST OFTEN HAPPEN WITH THE MPV WHEN THERE IS A N ABNORMAL PLATEL ET DISTRIBUTION DU E TO A CRITICAL LOW VA LUE OR PLATELET CLUMPI NG. THE RDW MAY BE SUPPRESSED IF T HERE ARE MULTIPLE PE AKS PRESENT ON THE RBC HISTOGRAM. IN T HIS CASE, A MANUAL REVIEW OF THE SLIDE WI LL BE PERFORMED, AND RBC MORPHOLOGY WILL BE NOTED ON THE RE PORT. NE% (test code = 58.7 % 42.0-75.0 NE) LY% (test code = 19.4 % 13.0-42.0 LY) MO% (test code = 10.9 % 4.0-14.0 MO) EO% (test code = 9.8 % 1.0-5.0 H EO) BA% (test code = 0.6 % 0.0-3.0 BA) IG% (test code = 0.6 % 0.0-0.4 H IG%) NRBC, Auto (test 0 /100WBC 0-2 code = NRBC_AUTO) Urinalysis specimen collection [id number] 04:50:00 Test Item Value Reference Range Interpretation Comments Urine Source (test code = 16861-4) [facility] [id number] 04:50:00 Test Item Value Reference Range Interpretation Comments Urine Color (test code = 05303-6) Yellow Yel-Ying * [facility] udkyljifkrbmt5496-69-96 04:50:00 Test Item Value Reference Range Interpretation Comments Urine Appearance (test code = 77834-7) Clear Clear * [facility] pH measurement by automated test [id number] 04:50:00 Test Item Value Reference Range Interpretation Comments Urine pH (test code = 19903-1) 5.0 5.0-8.0 [facility] HealthSpecific gravity of Urine by Automated test [id number] 04:50:00 Test Item Value Reference Range Interpretation Comments Urine Specific [place] (test code = 1.016 1.005-1.030 66932-7) [facility]Urine protein measurement by automated test strip (mass/volume) 2021-09-18 04:50:00 Test Item Value Reference Range Interpretation Comments Urine Protein (test code = 67859-6) 50 Negative * [facility]Urine glucose measurement by automated test strip (mass/volume) 2021-09-18 04:50:00 Test Item Value Reference Range Interpretation Comments Urine Glucose (UA) (test code = Negative Negative * 60041-9) [facility] HealthKetones [Mass/volume] in Urine by Automated test [id number] 04:50:00 Test Item Value Reference Range Interpretation Comments Urine Ketones (test code = 30999-2) Negative Negative * [facility]Urine erythrocytes count by automated test strip (number/volume) 2021-09-18 04:50:00 Test Item Value Reference Range Interpretation Comments Urine Occult Blood (test code = Trace Negative * 68100-7) [facility] HealthUrine nitrite detection by automated test [id number] 04:50:00 Test Item Value Reference Range Interpretation Comments Urine Nitrite (test code = 25217-0) Negative Negative [facility] total bilirubin measurement by automated test strip (mass/volume)2021-09-18 04:50:00 Test Item Value Reference Range Interpretation Comments Urine Bilirubin (test code = Negative Negative 13954-2) [facility]Urine urobilinogen measurement by automated test strip (mass/volume)2021-09-18 04:50:00 Test Item Value Reference Range Interpretation Comments Urine Urobilinogen (test code = Negative 0.0-1.0 36157-1) [facility]rine leukocytes count by automated test strip (number/volume) 2021-09-18 04:50:00 Test Item Value Reference Range Interpretation Comments Urine Leukocyte Esterase (test code = 25 Negative 48458-6) [facility] HealthMicroscopic examination of [id number] 04:50:00 Test Item Value Reference Range Interpretation Comments Microscopic Urinalysis (T) (test code = ----- 10219-6) [facility]Urine sediment erythrocyte count by microscopy (number/high power field)2021-09-18 04:50:00 Test Item Value Reference Range Interpretation Comments Urine RBC (test code = 87052-1) 3-10 0-2 [facility]rine sediment leukocyte count by microscopy (number/high power field)2021-09-18 04:50:00 Test Item Value Reference Range Interpretation Comments Urine WBC (test code = 5821-4) 0-5 0-5 [facility] HealthUrine sediment epithelial cell count by microscopy (number/high power field)2021-09-18 04:50:00 Test Item Value Reference Range Interpretation Comments Urine Epithelial Cells (test code = Frequent Few 5787-7) [facility] HealthUrine sediment crystal count by microscopy (number/high power field)2021-09-18 04:50:00 Test Item Value Reference Range Interpretation Comments Urine Crystals (test code = None Seen None * 44567-4) [facility]Urine sediment bacteria count by microscopy (number/high power field)2021-09-18 04:50:00 Test Item Value Reference Range Interpretation Comments Urine Bacteria (test code = 5769-5) Few None [facility]Urine sediment casts count by microscopy (number/low power field) 2021-09-18 04:50:00 Test Item Value Reference Range Interpretation Comments Urine Casts (test code = 9842-6) Present None * [facility]Urine sediment hyaline cast count by microscopy (number/low power field)2021-09-18 04:50:00 Test Item Value Reference Range Interpretation Comments Urine Hyaline Casts (test code = 6-10 0-1 5796-8) [facility] HealthYeast detection in urine sediment by light [id number] 04:50:00 Test Item Value Reference Range Interpretation Comments Urine Yeast (test code = 11695-6) None Seen None [facility] comment 04:50:00 Test Item Value Reference Range Interpretation Comments Urinalysis Comment (test * See_Comment [A utomated message] The code = 8262-8) system which generated this result tra nsmitted reference range : *. The reference range was not used to interpr et this result as normal/abnormal . [facility] HealthUrine methamphetamine jfpqgi9566-88-51 04:50:00 Test Item Value Reference Range Interpretation Comments Urine Methamphetamines Screen (test Positive Zufxvl=803 code = 33282-2) [facility] HealthUrine propoxyphene screening qxns2592-62-37 04:50:00 Test Item Value Reference Range Interpretation Comments Urine Propoxyphene Screen (test code Negative Ydouse=459 = 56793-2) [facility]Urine amphetamines detection by screening whixsi1089-04-39 04:50:00 Test Item Value Reference Range Interpretation Comments Urine Amphetamines Screen (test code Positive Bkyuqj=510 = 34319-4) [facility]rine buprenorphine screen with reflex fjasqnfyntky2203-64-49 04:50:00 Test Item Value Reference Range Interpretation Comments Urine Buprenorphine (test code = Negative Cutoff=10 33446-2) [facility]Urine barbiturates detection by screening iknfth2031-51-87 04:50:00 Test Item Value Reference Range Interpretation Comments Urine Barbiturates Screen (test code Negative Zwwsbl=478 = 11456-5) [facility]Urine benzodiazepines detection by screening uyznve7483-98-55 04:50:00 Test Item Value Reference Range Interpretation Comments Urine Benzodiazepines Screen (test Negative Ybaivb=405 code = 48423-3) [facility]rine benzoylecgonine detection by screening lkzwvf9180-51-71 04:50:00 Test Item Value Reference Range Interpretation Comments Urine Cocaine Screen (test code = Negative Isupqo=379 72056-6) [facility] HealthUrine methadone wgfkrn3753-68-59 04:50:00 Test Item Value Reference Range Interpretation Comments Urine Methadone, Qualitative (test Negative Nzymws=698 code = 60398-4) [facility] HealthUrine opiates screening maes9137-83-99 04:50:00 Test Item Value Reference Range Interpretation Comments Urine Opiates Screen (test code = Negative Sstuct=448 88556-3) [facility]Urine phencyclidine detection by screening fmuibn2446-31-55 04:50:00 Test Item Value Reference Range Interpretation Comments Urine Phencyclidine Screen (test Negative Cutoff=25 code = 22400-8) [facility]rine cannabinoids detection by screening gpdzon7092-33-09 04:50:00 Test Item Value Reference Range Interpretation Comments Urine Cannabinoids (test code = Negative Cutoff=50 55810-2) [facility] HealthScreening urine tricyclic antidepressants ipzvcvyrz4620-59-40 04:50:00 Test Item Value Reference Range Interpretation Comments Ur Tricyclic Antidepressants Screen Negative Gppzvq=017 (test code = 31957-4) [facility]Urine oxycodone detection by screening bqwldh1862-84-16 04:50:00 Test Item Value Reference Range Interpretation Comments Urine Oxycodone Screen (test code = Negative Jrmhnz=155 05813-3) [facility]Specific gravity of Urine by Automated test otzvw9845-81-97 04:50:00 Test Item Value Reference Range Interpretation Comments Urine Specific [place] (test code = 1.016 1.005-1.030 90704-0) [facility]rine pH measurement by automated test iepjl1115-21-80 04:50:00 Test Item Value Reference Range Interpretation Comments Urine pH (test code = 42837-5) 5.0 5.0-8.0 [facility]rine drug screen comment xwzwgvsoyitqqp9787-54-20 04:50:00 Test Item Value Reference Range Interpretation Comments Urine Drug Screen Comment (test code See Note = 01217-2) [facility] HealthUrinalysis specimen collection ieeybz7682-08-98 04:50:00 Test Item Value Reference Range Interpretation Comments Urine Source (test code = 80296-0) URINE [facility] HealthColor of Urine by Viuj8054-97-25 04:50:00 Test Item Value Reference Range Interpretation Comments Urine Color (test code = 48686-9) Yellow Yel-Ying * [facility] HealthUrine clarity vejfqxbfkjzgi1719-06-45 04:50:00 Test Item Value Reference Range Interpretation Comments Urine Appearance (test code = 59001-1) Clear Clear * [facility]Urine pH measurement by automated test dyqwn6234-73-74 04:50:00 Test Item Value Reference Range Interpretation Comments Urine pH (test code = 43947-3) 5.0 5.0-8.0 [facility]Specific gravity of Urine by Automated test ieqzi5121-71-32 04:50:00 Test Item Value Reference Range Interpretation Comments Urine Specific [place] (test code = 1.016 1.005-1.030 06013-1) [facility]rine protein measurement by automated test strip (mass/volume) 2021-09-18 04:50:00 Test Item Value Reference Range Interpretation Comments Urine Protein (test code = 23840-9) 50 Negative * [facility]rine glucose measurement by automated test strip (mass/volume) 2021-09-18 04:50:00 Test Item Value Reference Range Interpretation Comments Urine Glucose (UA) (test code = Negative Negative * 05863-2) [facility] HealthKetones [Mass/volume] in Urine by Automated test [id number] 04:50:00 Test Item Value Reference Range Interpretation Comments Urine Ketones (test code = 40973-2) Negative Negative * [facility]Urine erythrocytes count by automated test strip (number/volume) 2021-09-18 04:50:00 Test Item Value Reference Range Interpretation Comments Urine Occult Blood (test code = Trace Negative * 27960-6) [facility] HealthUrine nitrite detection by automated test [id number] 04:50:00 Test Item Value Reference Range Interpretation Comments Urine Nitrite (test code = 89132-3) Negative Negative [facility]Urine total bilirubin measurement by automated test strip (mass/volume)2021-09-18 04:50:00 Test Item Value Reference Range Interpretation Comments Urine Bilirubin (test code = Negative Negative 08316-2) [facility] HealthUrine urobilinogen measurement by automated test strip (mass/volume)2021-09-18 04:50:00 Test Item Value Reference Range Interpretation Comments Urine Urobilinogen (test code = Negative 0.0-1.0 66074-3) [facility]Urine leukocytes count by automated test strip (number/volume) 2021-09-18 04:50:00 Test Item Value Reference Range Interpretation Comments Urine Leukocyte Esterase (test code = 25 Negative 36290-4) [facility] HealthMicroscopic examination of rctss2985-51-50 04:50:00 Test Item Value Reference Range Interpretation Comments Microscopic Urinalysis (T) (test code = ----- 61357-5) [facility]Urine sediment erythrocyte count by microscopy (number/high power field)2021-09-18 04:50:00 Test Item Value Reference Range Interpretation Comments Urine RBC (test code = 12299-4) 3-10 0-2 [facility]Urine sediment leukocyte count by microscopy (number/high power field)2021-09-18 04:50:00 Test Item Value Reference Range Interpretation Comments Urine WBC (test code = 5821-4) 0-5 0-5 [facility] HealthUrine sediment epithelial cell count by microscopy (number/high power field)2021-09-18 04:50:00 Test Item Value Reference Range Interpretation Comments Urine Epithelial Cells (test code = Frequent Few 5787-7) [facility] HealthUrine sediment crystal count by microscopy (number/high power field)2021-09-18 04:50:00 Test Item Value Reference Range Interpretation Comments Urine Crystals (test code = None Seen None * 06315-2) [facility]Urine sediment bacteria count by microscopy (number/high power field)2021-09-18 04:50:00 Test Item Value Reference Range Interpretation Comments Urine Bacteria (test code = 5769-5) Few None [facility]Urine sediment casts count by microscopy (number/low power field) 2021-09-18 04:50:00 Test Item Value Reference Range Interpretation Comments Urine Casts (test code = 9842-6) Present None * [facility]Urine sediment hyaline cast count by microscopy (number/low power field)2021-09-18 04:50:00 Test Item Value Reference Range Interpretation Comments Urine Hyaline Casts (test code = 6-10 0-1 5796-8) [facility] HealthYeast detection in urine sediment by light ylzslmsegz7782-92-17 04:50:00 Test Item Value Reference Range Interpretation Comments Urine Yeast (test code = 34977-2) None Seen None [facility] comment 04:50:00 Test Item Value Reference Range Interpretation Comments Urinalysis Comment (test * See_Comment [A utomated message] The code = 8262-8) system which generated this result tra nsmitted reference range : *. The reference range was not used to interpr et this result as normal/abnormal . [facility] HealthUrine methamphetamine qosiza8282-75-56 04:50:00 Test Item Value Reference Range Interpretation Comments Urine Methamphetamines Screen (test Positive Tknyyw=077 code = 66245-6) [facility]Urine propoxyphene screening vlve1083-50-94 04:50:00 Test Item Value Reference Range Interpretation Comments Urine Propoxyphene Screen (test code Negative Ekyvym=764 = 26210-7) [facility]Urine amphetamines detection by screening rrkcbv9361-42-25 04:50:00 Test Item Value Reference Range Interpretation Comments Urine Amphetamines Screen (test code Positive Zhqgdf=885 = 64123-9) [facility]Urine buprenorphine screen with reflex ibuvixmuiwpd6976-72-82 04:50:00 Test Item Value Reference Range Interpretation Comments Urine Buprenorphine (test code = Negative Cutoff=10 44697-9) [facility]Urine barbiturates detection by screening uucjhl4739-65-95 04:50:00 Test Item Value Reference Range Interpretation Comments Urine Barbiturates Screen (test code Negative Iofptn=823 = 93782-0) [facility]Urine benzodiazepines detection by screening xswubn7615-75-29 04:50:00 Test Item Value Reference Range Interpretation Comments Urine Benzodiazepines Screen (test Negative Doglvu=477 code = 35181-0) [facility]Urine benzoylecgonine detection by screening huqccu3890-22-19 04:50:00 Test Item Value Reference Range Interpretation Comments Urine Cocaine Screen (test code = Negative Tfkipd=698 56642-4) [facility] Health[facility]rine methadone vhuppf1017-22-19 04:50:00 Test Item Value Reference Range Interpretation Comments Urine Methadone, Qualitative (test Negative Ybnvhq=595 code = 62962-0) [facility] HealthUrine opiates screening tslt6822-04-68 04:50:00 Test Item Value Reference Range Interpretation Comments Urine Opiates Screen (test code = Negative Gcsquv=211 91650-8) [facility] HealthUrine phencyclidine detection by screening cywfna1806-84-59 04:50:00 Test Item Value Reference Range Interpretation Comments Urine Phencyclidine Screen (test Negative Cutoff=25 code = 63840-5) [facility]Urine cannabinoids detection by screening dlhian5436-41-60 04:50:00 Test Item Value Reference Range Interpretation Comments Urine Cannabinoids (test code = Negative Cutoff=50 13969-7) [facility] HealthScreening urine tricyclic antidepressants bvsxwatai2815-59-22 04:50:00 Test Item Value Reference Range Interpretation Comments Ur Tricyclic Antidepressants Screen Negative Ieipca=764 (test code = 55608-5) [facility] Health[facility]rine oxycodone detection by screening suadun4623-72-05 04:50:00 Test Item Value Reference Range Interpretation Comments Urine Oxycodone Screen (test code = Negative Iuerhp=611 70368-0) [facility] HealthSpecific gravity of Urine by Automated test qvhln7085-00-78 04:50:00 Test Item Value Reference Range Interpretation Comments Urine Specific [place] (test code = 1.016 1.005-1.030 46699-5) [facility] HealthUrine pH measurement by automated test yoswb9978-54-26 04:50:00 Test Item Value Reference Range Interpretation Comments Urine pH (test code = 90646-8) 5.0 5.0-8.0 [facility]Urine drug screen comment kxjjelonrowsef4798-21-81 04:50:00 Test Item Value Reference Range Interpretation Comments Urine Drug Screen Comment (test code See Note = 39591-5) [facility] HealthSpecimen source [id number] 03:52:00 Test Item Value Reference Range Interpretation Comments Coronavirus 2019 Source (test code Nasal swab = 41337-5) [facility] KzwyydPQLL-TsE-7 RdRp Resp Ql MART+rvsya6527-51-46 03:52:00 Test Item Value Reference Range Interpretation Comments SARS CoV-2 RNA Rapid MART (test code Negative Negative = 23627-9) [facility]Spec[facility] source [id number] 03:52:00 Test Item Value Reference Range Interpretation Comments Coronavirus 2019 Source (test code Nasal swab = 94243-5) [facility] QzehmhALKB-DpJ-1 RdRp Resp Ql MART+ueppd7059-31-31 03:52:00 Test Item Value Reference Range Interpretation Comments SARS CoV-2 RNA Rapid MART (test code Negative Negative = 27856-1) [facility] HealthAutomated erythrocyte mean corpuscular volume (MCV) measurement 2021-09-18 01:20:00 Test Item Value Reference Range Interpretation Comments Mean Corpuscular Volume (test code = 88.5 80-94 787-2) [facility] HealthAutomated erythrocyte mean corpuscular hemoglobin (mass per erythrocyte)2021-09-18 01:20:00 Test Item Value Reference Range Interpretation Comments Mean Corpuscular Hemoglobin (test code 29.6 27.0-33.0 = 785-6) [facility] HealthAutomated erythrocyte mean corpuscular hemoglobin concentration measurement (mass/volume)2021-09-18 01:20:00 Test Item Value Reference Range Interpretation Comments Mean Corpuscular Hemoglobin Concent 33.5 33.0-37.0 (test code = 786-4) [facility] HealthAutomated erythrocyte distribution width lvjdd2819-20-22 01:20:00 Test Item Value Reference Range Interpretation Comments Red Cell Distribution Width (test code 13.8 10.7-14.5 = 788-0) [facility] HealthAutomated blood platelet count (count/volume)2021-09-18 01:20:00 Test Item Value Reference Range Interpretation Comments Platelet Count (test code = 777-3) 413 150-450 [facility] HealthAutomated blood platelet mean volume oyqmcqjycgc2263-14-25 01:20:00 Test Item Value Reference Range Interpretation Comments Mean Platelet Volume (test code = 8.6 5.7-10.7 01121-9) [facility] HealthAutomated blood neutrophil count as percentage of total kzdvhjanoj3635-37-51 01:20:00 Test Item Value Reference Range Interpretation Comments Neutrophils (%) (Auto) (test code = 70 47-75 770-8) [facility] HealthAutomated blood lymphocyte count as percentage of total rsfzrcmbzg2931-61-40 01:20:00 Test Item Value Reference Range Interpretation Comments Lymphocytes (%) (Auto) (test code = 14 25-44 736-9) [facility] HealthAutomated blood monocyte count as percentage of total leukocytes 2021-09-18 01:20:00 Test Item Value Reference Range Interpretation Comments Monocytes (%) (Auto) (test code = 7 3-10 5905-5) [facility] HealthAutomated blood eosinophil count as percentage of total ytmxzfxyel0410-69-23 01:20:00 Test Item Value Reference Range Interpretation Comments Eosinophils (%) (Auto) (test code = 8 0-7 713-8) [facility] HealthAutomated blood basophil count as percentage of total leukocytes 2021-09-18 01:20:00 Test Item Value Reference Range Interpretation Comments Basophils (%) (Auto) (test code = 0 0-1 706-2) [facility] HealthAutomated blood neutrophil count (number/volume)2021-09-18 01:20:00 Test Item Value Reference Range Interpretation Comments Neutrophils # (Auto) (test code = 8.3 1.3-6.7 751-8) [facility] HealthAutomated blood lymphocyte count (number/volume)2021-09-18 01:20:00 Test Item Value Reference Range Interpretation Comments Lymphocytes # (Auto) (test code = 1.7 1.4-4.1 731-0) [facility] HealthBlood monocytes automated count (number/volume)2021-09-18 01:20:00 Test Item Value Reference Range Interpretation Comments Monocytes # (Auto) (test code = 742-7) 0.9 0-1.3 [facility] HealthAutomated blood eosinophil [id number] 01:20:00 Test Item Value Reference Range Interpretation Comments Eosinophils # (Auto) (test code = 1.0 0-0.8 711-2) [facility] HealthAutomated blood basophil count (number/volume)2021-09-18 01:20:00 Test Item Value Reference Range Interpretation Comments Basophils # (Auto) (test code = 704-7) 0.1 0-0.1 [facility] comment 01:20:00 Test Item Value Reference Range Interpretation Comments Manual Differential (test code = Not Ind 8265-1) [facility] HealthD dimer DDU YSM-zQch0458-54-01 01:20:00 Test Item Value Reference Range Interpretation Comments D-Dimer (test code = 42575-3) 416 0-500 [facility] HealthSodium HqvGy-dAvl4474-27-01 01:20:00 Test Item Value Reference Range Interpretation Comments Sodium Level (test code = 2951-2) 139 136-145 [facility] HealthSerum or plasma potassium measurement (moles/volume)2021-09-18 01:20:00 Test Item Value Reference Range Interpretation Comments Potassium Level (test code = 2823-3) 3.7 3.5-5.1 [facility] HealthSerum or plasma chloride measurement (moles/volume)2021-09-18 01:20:00 Test Item Value Reference Range Interpretation Comments Chloride Level (test code = 2075-0) 97 98-107 [facility] HealthSerum or plasma total carbon dioxide measurement (moles/volume) 2021-09-18 01:20:00 Test Item Value Reference Range Interpretation Comments Carbon Dioxide Level (test code = 23 22-29 2027-9) [facility] HealthSerum or plasma anion gap determination (moles/volume)2021-09-18 01:20:00 Test Item Value Reference Range Interpretation Comments Anion Gap (test code = 14788-4) 23 8-18 [facility] HealthSerum or plasma urea nitrogen measurement (mass/volume)2021-09-18 01:20:00 Test Item Value Reference Range Interpretation Comments Blood Urea Nitrogen (test code = 52 9-21 3094-0) [facility] HealthSerum or plasma creatinine measurement (mass/volume)2021-09-18 01:20:00 Test Item Value Reference Range Interpretation Comments Creatinine (test code = 2160-0) 4.8 0.7-1.3 [facility] HealthGFR/BSA.pred SerPl RPAG-MvHHgy2717-95-01 01:20:00 Test Item Value Reference Range Interpretation Comments Estimat Glomerular Filtration Rate 14 73-125 (test code = 14388-7) [facility] HealthSerum or plasma urea nitrogen/creatinine mass vmaqj6806-08-91 01:20:00 Test Item Value Reference Range Interpretation Comments BUN/Creatinine Ratio (test code = 11 3097-3) [facility] HealthSerum or plasma glucose measurement (mass/volume)2021-09-18 01:20:00 Test Item Value Reference Range Interpretation Comments Glucose Level (test code = 2345-7) 156 60-100 [facility] HealthOsmolality SerPl Ymns6768-25-55 01:20:00 Test Item Value Reference Range Interpretation Comments Calculated Osmolality (test code = 295 14595-3) [facility] HealthSerum or plasma calcium measurement (mass/volume)2021-09-18 01:20:00 Test Item Value Reference Range Interpretation Comments Calcium Level (test code = 27967-1) 9.2 8.4-10.2 [facility] HealthSerum or plasma total bilirubin measurement (mass/volume) 2021-09-18 01:20:00 Test Item Value Reference Range Interpretation Comments Total Bilirubin (test code = 1975-2) 0.8 0.2-1.2 [facility] or plasma aspartate aminotransferase measurement (enzymatic activity/volume)2021-09-18 01:20:00 Test Item Value Reference Range Interpretation Comments Aspartate Amino Transf (AST/SGOT) (test 20 5-34 code = 1920-8) [facility] plasma alanine aminotransferase measurement (enzymatic activity/volume)2021-09-18 01:20:00 Test Item Value Reference Range Interpretation Comments Alanine Aminotransferase (ALT/SGPT) 25 0-55 (test code = 1742-6) [facility] plasma protein measurement (mass/volume)2021-09-18 01:20:00 Test Item Value Reference Range Interpretation Comments Total Protein (test code = 2885-2) 7.9 6.4-8.3 [facility] plasma albumin measurement (mass/volume)2021-09-18 01:20:00 Test Item Value Reference Range Interpretation Comments Albumin (test code = 1751-7) 4.4 3.5-5.0 [facility] globulin measurement by calculation (mass/volume)2021-09-18 01:20:00 Test Item Value Reference Range Interpretation Comments Globulin (test code = 58445-8) 3.5 [facility] albumin/globulin mass [id number] 01:20:00 Test Item Value Reference Range Interpretation Comments Albumin/Globulin Ratio (test code = 1.3 1759-0) [facility] plasma alkaline phosphatase measurement (enzymatic activity/volume)2021-09-18 01:20:00 Test Item Value Reference Range Interpretation Comments Alkaline Phosphatase (test code = 57 40-150 6768-6) [facility] Test Item Value Reference Range Interpretation Comments Total Creatine Kinase (test code = 213 30-200 2157-6) [facility] [id number] 01:20:00 Test Item Value Reference Range Interpretation Comments Troponin I (test code = 25394-5) 0.02 0.00-0.03 [id number] 01:20:00 Test Item Value Reference Range Interpretation Comments Total Creatine Kinase (test code = 213 30-200 2157-6) [facility] leukocyte count (number/volume)2021-09-18 01:20:00 Test Item Value Reference Range Interpretation Comments White Blood Count (test code = 6690-2) 11.9 4.5-11.5 [facility] erythrocytes automated count (number/volume)2021-09-18 01:20:00 Test Item Value Reference Range Interpretation Comments Red Blood Count (test code = 789-8) 4.69 4.4-6.2 [facility] hemoglobin measurement (mass/volume)2021-09-18 01:20:00 Test Item Value Reference Range Interpretation Comments Hemoglobin (test code = 718-7) 13.9 13.0-17.5 [facility]Automated blood hematocrit (volume fraction)2021-09-18 01:20:00 Test Item Value Reference Range Interpretation Comments Hematocrit (test code = 4544-3) 41.5 39.0-52.5 [facility] HealthSodium [id number] 07:42:00 Test Item Value Reference Range Interpretation Comments Sodium Level (test code = 2951-2) 140 136-145 [facility] plasma potassium measurement (moles/volume)2021-08-31 07:42:00 Test Item Value Reference Range Interpretation Comments Potassium Level (test code = 2823-3) 4.0 3.5-5.1 [facility] plasma chloride measurement (moles/volume)2021-08-31 07:42:00 Test Item Value Reference Range Interpretation Comments Chloride Level (test code = 2075-0) 99 98-107 [facility] plasma total carbon dioxide measurement (moles/volume) 2021-08-31 07:42:00 Test Item Value Reference Range Interpretation Comments Carbon Dioxide Level (test code = 29 22-29 2028-01) [facility] plasma anion gap determination (moles/volume)2021-08-31 07:42:00 Test Item Value Reference Range Interpretation Comments Anion Gap (test code = 44857-7) 16 8-18 [facility] plasma urea nitrogen measurement (mass/volume)2021-08-31 07:42:00 Test Item Value Reference Range Interpretation Comments Blood Urea Nitrogen (test code = 8 9-21 3094-0) [facility] plasma creatinine measurement (mass/volume)2021-08-31 07:42:00 Test Item Value Reference Range Interpretation Comments Creatinine (test code = 2160-0) 0.8 0.7-1.3 [facility] HealthGFR/BSA.pred SerPl [id number] 07:42:00 Test Item Value Reference Range Interpretation Comments Estimat Glomerular Filtration Rate 111 73-125 (test code = 60115-8) [facility] plasma urea nitrogen/creatinine mass [id number] 07:42:00 Test Item Value Reference Range Interpretation Comments BUN/Creatinine Ratio (test code = 10 3097-3) [facility] or plasma glucose measurement (mass/volume)2021-08-31 07:42:00 Test Item Value Reference Range Interpretation Comments Glucose Level (test code = 2345-7) 129 60-100 [facility] CenterOsmolality SerPl [id number] 07:42:00 Test Item Value Reference Range Interpretation Comments Calculated Osmolality (test code = 279 98729-8) [facility] calcium measurement (mass/volume)2021-08-31 07:42:00 Test Item Value Reference Range Interpretation Comments Calcium Level (test code = 84528-5) 9.5 8.4-10.2 [facility]
[2022-01-15] MEDS ORDERED: NA CHLORIDE 0.9% 1,000 ML ONE (20:29)
[2022-01-15] MEDS ORDERED: Levofloxacin 750mg IV 750 MG/150 ML BAG IV ONE (20:31)
[2022-01-15] MEDS ORDERED: NA CHLORIDE 0.9% 100 ML ONE (20:31)
[2022-01-15] MEDS ORDERED: PIPERACIL/TAZO 3.375 GM VIAL IV ONE (20:32)
[2022-01-15] MEDS ORDERED: LIDOCAINE 1% MPF 5 ML VIAL ONE (20:33)
[2022-01-15 21:15] LABS: Absolute Lymphocytes (CBC) 1.9 K/uL (0.7-4.9); Hematocrit 28.7 % (39.6-49.0); MCV 90.3 fL (80-100); MPV 6.3 fL (7.6-11.3); RBC Red Blood Cell Count 3.18 M/uL (4.33-5.43)
--- NOTE | 2022-01-15 21:23 | RAD REPORT ---
EXAM DESCRIPTION: RAD - Knee Right 3 View - 01/15/2022 9:16 pm CLINICAL HISTORY: PAIN COMPARISON: No comparisons FINDINGS/IMPRESSION: Status post below the knee amputation. Question ulcerations along the stump. Dy strophic calcifications are noted. Comminuted femur fracture is partially imaged. Intramedullary ralph is noted.
--- NOTE | 2022-01-15 21:23 | RAD REPORT ---
EXAM DESCRIPTION: RAD - Chest Single View - 01/15/2022 9:16 pm CLINICAL HISTORY: weakness COMPARISON: No comparisons FINDINGS: Lines: None. Lungs: No evidence of edema or pneumonia. Pleural: No significant pleural effusions or pneumothorax. Cardiac: The heart size is within normal limits. Bones: No acute fractures. Probably subacute right-sided rib fractures. Other: IMPRESSION: No acute cardiopulmonary disease.
[2022-01-15 21:24] LABS: Protime INR 1.31
[2022-01-15 21:36] LABS: AST/SGOT 7 U/L (15-37); Alkaline Phosphatase 128 U/L (45-117); BUN Blood Urea Nitrogen 6 mg/dL (7-18); Bicarbonate 31 mmol/L (21-32); Bilirubin Total 0.1 mg/dL (0.2-1.0); Glomerular Filtration Rate 140 ml/min (=/>90); Glucose Level 85 mg/dL (74-106); Potassium 4.3 mmol/L (3.5-5.1); Protein, Total 4.4 g/dL (6.4-8.2); Sodium Level 139 mmol/L (136-145)
[2022-01-15 21:53] LABS: ALT/SGPT < 10 U/L (12-78)
[2022-01-15] MEDS ORDERED: ACETAMINOPHEN 500 MG TAB ONE (21:58)
[2022-01-15 23:19] LABS: SARS-CoV-2 Antigen Rapid Res Negative (Negative)
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
[2022-01-15] MEDS ORDERED: ENOXAPARIN 100 MG/ML SYR SQ ONE (23:53)
[2022-01-16] MEDS ORDERED: NA CHLORIDE 0.9% 1,000 ML ONE (00:01)
[2022-01-16] MEDS ORDERED: DOPAMINE/D5W 400 MG/250 ML BAG IV ONE (00:37)
[2022-01-16 02:51] VITALS: TEMP 98.1
[2022-01-16 03:09] VITALS: O2SAT 99
[2022-01-16 03:11] VITALS: BP 86/50
--- NOTE | 2022-01-16 14:11 | RAD REPORT ---
EXAM DESCRIPTION: US - Extrem Venous W Compress Vance - 01/16/2022 1:44 am ADDENDUM #1 THIS REPORT CONTAINS FINDINGS THAT MAY BE CRITICAL TO PATIENT CARE: The findings were verbally discus sed via telephone conference with Dr. Gomez Richards on 01/16/2022 1:30 AM CDT. The results were acknow ledged and understood. Electronically signed by: Chad Edwards MD 01/16/2022 1:30 AM CDT End of Addendum EXAM DESCRIPTION: US Duplex Bilateral Lower Extremities Veins CLINICAL HISTORY: SOB TECHNIQUE: Real-time duplex ultrasound scan of the bilateral lower extremity veins integrating B-mod e two-dimensional vascular structure, Doppler spectral analysis, color flow Doppler imaging and compr ession. COMPARISON: No relevant prior studies available. FINDINGS: Limitations: Incomplete examination secondary to patient transfer. Right deep veins: Intraluminal thrombus with partial compressibility involving the right common fem oral, mid and distal femoral and popliteal veins. This appears occlusive in the femoral and popliteal veins. Right superficial veins: Unremarkable. No thrombus in the visualized right great saphenous vein. Left deep veins: The left common femoral vein is patent. Remaining left-sided veins not imaged. Soft tissues: No acute findings. No popliteal cyst. IMPRESSION: Right lower extremity DVT involving the common femoral, femoral and popliteal veins and appears occlusive at the level of the femoral and popliteal veins. Electronically signed by: Chad Edwards MD 01/16/2022 1:26 AM CDT Due to temporary technical issues with the PACS/Fluency reporting system, reports are being signed by the in house radiologists without review as a courtesy to insure prompt reporting. The interpreting radiologist is fully responsible for the content of the report.
--- NOTE | 2022-01-16 15:27 | RAD REPORT ---
EXAM DESCRIPTION: CT - Chest Abdomen Pelvis W Cont - 01/16/2022 6:55 am ADDENDUM #1 THIS REPORT CONTAINS FINDINGS THAT MAY BE CRITICAL TO PATIENT CARE: The findings were verbally discus sed via telephone conference with Dr. Gomez Richards by Dr. Alba Diggs on 01/15/2022 11:28 PM CDT .The results were acknowledged and understood. Electronically signed by: Mae Diggs MD 01/15/2022 11:59 PM CDT End of Addendum EXAM DESCRIPTION: CT Chest, Abdomen and Pelvis With Intravenous Contrast CLINICAL HISTORY: The patient is 46 years old and is Male; abdominal pain TECHNIQUE: Axial computed tomography images of the chest, abdomen and pelvis with intravenous contra st. Sagittal and coronal reformatted images were created and reviewed. This CT exam was performed using one or more of the following dose reduction techniques: automated exposure control, adjustme nt of the mA and/or kV according to patient size, and/or use of iterative reconstruction technique. COMPARISON: No relevant prior studies available. FINDINGS: CHEST: LUNGS: Minimal dependent densities in the lung bases are noted. The lungs are otherwise clear. PLEURAL SPACE: Small bilateral pleural effusions are present. No pneumothorax. HEART: No cardiomegaly. No pericardial effusion. ABDOMEN: LIVER: The liver is enlarged and diffusely fatty. GALLBLADDER AND BILE DUCTS: No calcified stones. No ductal dilation. PANCREAS: Mild fatty infiltration of pancreas is present. SPLEEN: Unremarkable. ADRENALS: Unremarkable. No mass. KIDNEYS AND URETERS: Heterogeneous exophytic mass off of the lower pole the left kidney is presen t measuring approximately 3.8 cm. The kidneys are otherwise unremarkable. There is no hydronephrosis or hydroureter of either kidney. STOMACH AND BOWEL: The stomach is decompressed. The proximal small bowel is normal in appearanc e. Diffuse wall thickening with surrounding inflammatory stranding involving the distal small bowel w ithin the right lower quadrant. Mucosal thickening and surrounding inflammation involving the rectosi gmoid colon is also noted. Stool is present throughout colon. There is no overt obstruction. PELVIS: APPENDIX: The appendix is normal in caliber without surrounding inflammation. BLADDER: Bladder is moderately distended. Air is present within the bladder. REPRODUCTIVE: Diffuse calcifications are present within the prostate. CHEST, ABDOMEN and PELVIS: INTRAPERITONEAL SPACE: Free fluid is present within the pelvis with mild edema throughout the mesen marian in the right abdomen. RETROPERITONEAL SPACE: A heterogeneous 6.4 x 6.1 cm mass within the retroperitoneum abutting the L5 vertebral body is present. BONES/JOINTS: Multiple healed right-sided rib fractures are present. No lytic or blastic lesions are seen. SOFT TISSUES: The soft tissues are normal. VASCULATURE: The defect is present within the left main pulmonary artery extending into the left upper and left lower lobe pulmonary artery branches. Filling defect is present within the right upper and right lower lobe segmental and subsegmental pulmonary artery branches. No aortic aneurysm. LYMPH NODES: Few prominent bilateral inguinal chain lymph nodes are present. IMPRESSION: 1. Bilateral pulmonary thromboemboli. No saddle embolus. No findings to suggest right heart strain. 2. Exophytic left renal mass concerning for renal cell carcinoma. Further evaluation is warranted. 3. Extensive mucosal thickening with surrounding inflammation and edema involving several small bow el loops within the right lower quadrant. Findings are concerning for extensive enteritis. Infectious , inflammatory, and ischemic etiologies within the differential. 4. Mild colitis involving the sigmoid colon. 5. Large heterogeneous mass within the retroperitoneum just inferior to the bifurcation of the IVC. Findings may be secondary to a large necrotic metastatic lymph node or metastatic lesion. Electronically signed by: Mae Diggs MD 01/15/2022 11:22 PM CDT Due to temporary technical issues with the PACS/Fluency reporting system, reports are being signed by the in house radiologists without review as a courtesy to insure prompt reporting. The interpreting radiologist is fully responsible for the content of the report.
--- NOTE | 2022-01-17 08:17 | EKG ---
Test Date: 2022-01-15 Test Time: 21:17:25 Grinder: JACOB MEASUREMENT RESULTS: Intervals: Rate: 87 IL: 134 QRSD: 98 QT: 342 QTc: 411 Clarkrange: P: 51 IL: 134 QRS: 49 T: 102 INTERPRETIVE STATEMENTS: Normal sinus rhythm Nonspecific T wave abnormality Abnormal ECG No previous ECG available for comparison Electronically Signed On 01-17-22 08:12:35 CDT by Cesar Hunt
== END 2022-01-16 01:11 | disposition short-term general hospital (02) ==
LOC: ER 19:48
DX: I26.99 Other pulmonary embolism without acute cor pulmonale (principal); K55.9 Vascular disorder of intestine, unspecified; Z89.511 Acquired absence of right leg below knee; Z20.822 Contact with and (suspected) exposure to COVID-19
CPT/HCPCS: 36415; 71045; 71260; 74177; 80053; 83605; 85025; 85610; 85730; 87040; 87811; 93005; 93970; 96372; 99285; J1265; J1650; J2543; J7030; Q9967

== ENCOUNTER 2022-02-08 08:30 | Inpatient (IN) | payer OTHER, SELFPAY ==
--- OUTSIDE RECORDS SUMMARY | 2022-02-08 08:32 | XMS REPORT | Clinical Summary ---
:1975 Author Organization [facility] Address [address] [place] [address] Care Team Providers Name Role Phone Unavailable Primary Care Provider Unavailable Allergies Not on File Medications Not on file Active Problems Not on file Encounters Date Type Specialty Care Team Description 10/13/2021 Telephone Patient Access Services Albert Adams RN after 02/08/2021 Social History Tobacco Use Types Packs/Day Years Used Date Never Assessed Sex Assigned at Date Recorded Not on file Last Filed Vital Signs Not on file Plan of Treatment Not on file Results Not on fileafter 02/08/2021
--- OUTSIDE RECORDS SUMMARY | 2022-02-08 08:37 | XMS REPORT | Continuity of Care Document ---
:[address] [facility] t Address [address] [place] [address] Care Team Providers Name Role Phone Asked, No Pcp Primary Care Physician Unavailable LORE_CATRACHITA_Baron_Megan Attending Clinician Unavailable Roopa Draper Attending Clinician [phone] Humphrey Brown Attending Clinician [phone] Bryan MENDEZ, Albert Calhoun Attending Clinician Unavailable CURT KUNZ Attending Clinician Unavailable ROOPA MARTINO Attending Clinician Unavailable LIZETH HARMON Attending Clinician Unavailable TARAS BALTAZAR Attending Clinician Unavailable DR PREMA VO Attending Clinician Unavailable HELLEN THOMAS Attending Clinician Unavailable SAWYER RYAN Attending Clinician Unavailable KEVIN ACOSTA Attending Clinician Unavailable PATRICK AGARWAL Attending Clinician Unavailable RAYA ADAME Attending Clinician Unavailable ELISHA ROBERTSON Attending Clinician Unavailable GC_BAHC_Todd_J Admitting Clinician Unavailable CURT KUNZ Admitting Clinician Unavailable DR PREMA VO Admitting Clinician Unavailable Payers Payer Name Policy Type Policy Number Effective Date Expiration Date S ource PENDING MEDICAID Medicaid [id number] 4477-08-29 00:00:00 MEDICAID - 000 MOVED-MGRHOLD - PENDING [id number] 1959 00:00:00 Problems Condition Condition Condition Status [...] Date Quantity Comments Source History of tobacco [facility] use History [facility] Yarsanism Alcohol Binge Hospital History [facility] Yarsanism Alcohol Std Drinks Hospit al Alcohol intake 2020-11-11 2020-11-11 Lifetime Yarsanism 00:00:00 00:00:00 non-drinker Hospital (finding) History [facility] 2020-07-21 2020-07-21 1 Yarsanism Alcohol Frequency 00:00:00 00:00:00 [facility] Tobacco use and 2018-10-21 2018-10-21 Smokeless tobacco Me thodist exposure 00:00:00 00:00:00 non-user Hospital Cigarettes smoked 2018-10-21 2018-10-[address] current (pack per 00:00:00 00:00:00 [facility] day) - Reported Sex Ass[birth year] At [birth year] Yarsanism 00:00:00 00:00:00 Hospital Smoking Status Start Date Stop Date Source Current some day smoker [facility] (LUF/ERIKA/SA) Current Heavy tobacco 2021-09-23 18:49:00 [facility] smoker Smokes tobacco daily 2021-08-31 07:06:00 [facility] (finding[facility] Medications Ordered Filled Start Stop Current Ordering Indication Dosage Frequency Signature Comments Components Source Medication Medication Date Date Medication? Clinician (SIG) Name Name Naproxen No 275mg Twice A (Anaprox) 5-06 Day as S 275 Mg TAB 22:32: needed for H ealth 00 Pain Rivaroxaban No 1 As [facility] U (Xarelto 09-23 Directed S Starter 22:32: Health [place]) 1 Each 00 TAB.DS.PK Methylpredn No 1 As [facility] U isolone 4-13 Directed S (Medrol 10:00: Health Pack) 21 Tab TAB Methylpredn No 1 As [facility] U isolone 4-13 Directed S (Medrol 10:00: Health Pack) Tab TAB Methylpredn No 1 As [facility] U isolone 4-13 Directed S (Medrol 10:00: Health Pack) 21 Tab TAB Hctz/Lisino 0 No 1 Daily for C [facility] pril 4-13 Htn S (Zestoretic 09:09: Health 20-12.5) 1 00 Tab TAB Hctz/Lisino 2021-0 No 1 Daily for C [facility] pril 4-13 Htn S (Zestoretic 09:09: Health 20-12.5) 1 00 Tab TAB Hctz/Lisino 2021-0 No 1 Daily for C [facility] pril 4-13 Htn S (Zestoretic 09:09: Health 20-12.5) 1 00 Tab TAB Albuterol 0 No 2 Every 4 90 Mcg/Act 4-13 Hours as S Hfa Inh 09:08: needed for Heal th (Proair Hfa 00 Shortness Inh) 8.5 Gm Of HFA.AER.AD Breath/Whe ezing Benzonatate No 200mg Three [facility] (Tessalon) 4-13 Times A S 200 Mg CAP 09:08: Day as Healt h 00 needed for Cough Albuterol 2021-0 No 2 Every 4 90 Mcg/Act 4-13 Hours as S Hfa Inh 09:08: needed for Heal th (Proair Hfa 00 Shortness Inh) 8.5 Gm Of HFA.AER.AD Breath/Whe ezing Benzonatate No 200mg Three [facility] (Tessalon) 4-13 Times A S 200 Mg CAP 09:08: Day as Healt h 00 needed for Cough Albuterol 0 No 2 Every 4 LISANDRO TU 90 [...] No 600mg Tid With CHR ISTU (Motrin) 302 Meals & Hs S 600 Mg TAB 19:22: as needed He alth 00 for Pain Methylpredn No 1 As KATHLEEN U isolone -02 Directed S (Medrol 19:22: Health Pack) 21 00 Tab TAB Methylpredn 2021-0 No 1 As KATHLEEN U isolone -02 Directed S (Medrol 19:22: Health Pack) 21 00 Tab TAB Methylpredn 2021-0 No 1 As KATHLEEN U isolone 3-02 Directed S (Medrol 19:22: Health Pack) 21 00 Tab TAB Methylpredn 2021-0 No 1 As KATHLEEN U isolone 3-02 Directed S (Medrol 19:22: Health Pack) 21 00 Tab TAB Ibuprofen 2021- No 600mg Tid With CH RISTU (Motrin) 3 04-02 Meals & Hs S 600 Mg TAB 19:22: 00:00 as needed H ealth 00 :00 for Pain Ibuprofen 2022021- No 600mg Tid With CH RISTU (Motrin) 07-20 Meals & Hs S 600 Mg TAB 19:22: 00:00 as needed H ealth 00 :00 for Pain Ibuprofen 2021- No 600mg Tid With CH RISTU (Motrin) 07-20 0402 Meals & Hs S 600 Mg TAB 19:22: 00:00 as needed H ealth 00 :00 for Pain No known No No known Metho di medications -[address] 01:08: [facility] No known No No known Metho di medications - medication [facility] 01:08: [facility] No known No No known Metho di medications - medication [facility] 01:08: s [facility] l [...] [facility] Oral Tablet Oral Tablet N[facility] AT [facility] BED TIME l (LUF/LI V/SA) Immunizations Ordered Immunization Filled Immunization Date Status Commen ts Source Name Name COVID-19 vaccine, 2020-11-26 Completed [facility] vector-nr, rS-Ad26, 00:00:00 PF, COVID-19 vaccine, 2020-11-26 Completed [facility] vector-nr, rS-Ad26, 00:00:00 PF, COVID-19 vaccine, 2020-11-26 Completed [facility] vector-nr, rS-Ad26, 00:00:00 PF, FLUCELVAX QUAD PF 2017-02-[address] 00:00[facility]00 Hospital Pneumococcal 2017-02-03 Completed Yarsanism Conjugate 13-Valent 00:00:00 Hospi eugene FLUCELVAX QUAD PF 2017-02-[address] 00:00:00 Hospital Pneumococcal 2017-02-03 Completed Yarsanism Conjugate 13-Valent 00:00:00 Hospi eugene FLUCELVAX QUAD PF 2017-02-[address] 00:00:00 [facility] Pneumococcal 2017-02-03 Completed Yarsanism Conjugate 13-Valent 00:00:00 Hospi eugene Vital Signs Vital Name Observation Time Observation Value Comments Source Height 2021-10-12 08:42:00 182.88 CM Weight 2021-10-12 08:42:00 110 KG Height 2021-09-18 09:00:00 182.88 CM Weight 2021-09-18 08:24:00 115.1 KG Respiratory Rate 2021-10-12 11:46:00 16 /min [facility] (F/ERIKA/SA) O2% BldC Oximetry 2021-10-12 11:46:00 98 % [facility] (F/ERIKA/SA) BP Systolic 2021-10-12 11:46:00 147 mm[Hg] [facility] (F/ERIKA/SA) BP Diastolic 2021-10-12 11:46:00 106 mm[Hg] [facility] (F/ERIKA/SA) Heart Rate 2021-10-12 10:31:00 82 /min [facility] (LUF/ERIKA/SA) Body Temperature 2021-10-12 08:42:00 98.3 [degF] [facility] (F/ERIKA/SA) Pulse Rate 2021-10-12 08:42:00 78 /min [facility] (LUF/ERIKA/SA) Height 2021-10-12 08:42:00 72 [in_i] [facility] (LUF/ERIKA/SA) Weight 2021-10-12 08:42:00 110 kg [facility] (LUF/ERIKA/SA) BMI (Body Mass Index) 2021-10-12 08:42:00 33.2 kg/m2 [facility] (LUF/ERIKA/SA) BP Diastolic 2021-09-23 22:59:00 94 mm[Hg] [facility] BP Systolic 2021-09-23 22:59:00 154 mm[Hg] [facility] Heart Rate 2021-09-23 22:59:00 64 /min [facility] Respiratory rate 2021-09-23 22:59:00 19 /min [facility] Body Temperature 2021-09-23 22:59:00 97.9 [degF] [facility] BP Diastolic 2021-09-23 18:47:00 94 mm[Hg] [facility] BP Systolic 2021-09-23 18:47:00 154 mm[Hg] [facility] Heart Rate 2021-09-23 18:47:00 64 /min [facility] Respiratory rate 2021-09-23 18:47:00 19 /min [facility] Body Temperature 2021-09-23 18:47:00 97.9 [degF] [facility] Body Temperature 2021-09-18 16:51:00 98.4 [degF] [facility] (LUF/ERIKA/SA) Heart Rate 2021-09-18 16:01:00 67 /min [facility] (LUF/ERIKA/SA) Pulse Rate 2021-09-18 16:01:00 66 /min [facility] (LUF/ERIKA/SA) Respiratory Rate 2021-09-18 16:01:00 16 /min [facility] (LUF/ERIKA/SA) O2% BldC Oximetry 2021-09-18 16:01:00 97 % [facility] (LUF/ERIKA/SA) BP Systolic 2021-09-18 16:01:00 142 mm[Hg] [facility] (LUF/ERIKA/SA) BP Diastolic 2021-09-18 16:01:00 66 mm[Hg] [place] [facility] (LUF/ERIKA/SA) Height 2021-09-18 09:00:00 72 [in_i] [place] [facility] (LUF/ERIKA/SA) Weight 2021-09-18 08:24:00 115.1 kg [place] [facility] (LUF/ERIKA/SA) BP Diastolic 2021-09-18 06:10:00 78 mm[Hg] [facility] BP Systolic 2021-09-18 06:10:00 122 mm[Hg] [facility] Heart Rate 2021-09-18 06:10:00 58 /min [facility] Respiratory rate 2021-09-18 06:10:00 16 /min [facility] Body Temperature 2021-09-18 06:10:00 98.0 [degF] [facility] BP Diastolic 2021-09-18 03:44:00 67 mm[Hg] [...] Health Body Temperature 2021-08-31 07:02:00 97.4 [degF] [facility] BP Diastolic 2021-07-20 19:59:00 98 mm[Hg] [facility] Health BP Systolic 2021-07-20 19:59:00 155 mm[Hg] [facility] Health Heart Rate 2021-07-20 19:59:00 73 /min [facility] Respiratory rate 2021-07-20 19:59:00 20 /min [facility] Body Temperature 2021-07-20 19:59:00 97.8 [degF] [facility] Health BP Diastolic 2021-07-20 19:00:00 98 mm[Hg] [facility] Health BP Systolic 2021-07-20 19:00:00 155 mm[Hg] [facility] Health Heart Rate 2021-07-20 19:00:00 73 /min [facility] Health Respiratory rate 2021-07-20 19:00:00 20 /min [facility] Body Temperature 2021-07-20 19:00:00 97.8 [degF] [facility] ST Health BP Diastolic 2021-07-20 18:55:00 98 mm[Hg] [facility] Health BP Systolic 2021-07-20 18:55:00 155 mm[Hg] [facility] Heart Rate 2021-07-20 18:55:00 73 /min [facility] Health Respiratory rate 2021-07-20 18:55:00 20 /min [facility] Body Temperature 2021-07-20 18:55:00 97.8 [degF] [facility] Procedures Procedure Date / Time Performed Performing Clinician [facility] e ECG (electrocardiogram) 2021-09-23 00:00:00 [facility] [employer] X-ray of chest, single 2021-09-23 00:00:00 LIS[facility]O [employer] view X-ray of forearm, two 2021-09-23 00:00:00 [facility] Computed tomography 2021-09-23 00:00:00 [facility] angiography of pulmonary artery ECG (electrocardiogram) 2021-09-18 00:00:00 [facility] [employer] X-ray of chest, single 2021-09-18 00:00:00 LISANDRO [employer] view Hopd covid-19 spec collect 2021-09-18 00:00:00 [facility] X-[facility] of chest, single 2021-08-31 00:00:00 [facility] view ECG (electrocardiogram) 2021-08-31 00:00:00 [facility] Computed [facility] of 2021-08-31 00:00:00 [facility] head or brain without contrast Plan of Care Planned Activity Planned Date Details Comments Source Future Scheduled 2022-02-08 HEPATITIS B VACCINES Met [facility] Test 08:32:14 (1 of 3 - 3-dose series) [code = HEPATITIS B VACCINES (1 of 3 - 3-dose series)] Future Scheduled 2022-02-08 COVID-19 VACCINE (#1) [facility] Test 08:32:14 [code = COVID-19 VACCINE (#1)] Future Scheduled 2022-02-08 Hepatitis C screening [facility] Test 08:32:14 (procedure) [code = 283560285] Future Scheduled 2022-02-08 Pneumococcal Vaccine: [facility] Test 08:32:14 Pediatrics (0 to 5 Years) and At-Risk Patients (6 to 64 Years) (2 - PPSV23 or PCV20) [code = Pneumococcal Vaccine: Pediatrics (0 to 5 Years) and At-Risk Patients (6 to 64 Years) (2 - PPSV23 or PCV20)] Future Scheduled 2022-02-08 COLONOSCOPY SCREENING [facility] Test 08:32:14 [code = COLONOSCOPY SCREENING] Future Scheduled 2022-02-08 INFLUENZA VACCINE Method [facility] Test 08:32:14 [code = INFLUENZA VACCINE] Future Scheduled 2022-01-20 HEPATITIS B VACCINES Met [facility] Test 00:06:50 (1 of 3 - 3-dose series) [code = HEPATITIS B VACCINES (1 of 3 - 3-dose series)] Future Scheduled 2022-01-20 COVID-19 VACCINE (#1) [facility] Test 00:06:50 [code = COVID-19 VACCINE (#1)] Future Scheduled 2022-01-20 Hepatitis C screening [facility] Test 00:06:50 (procedure) [code = 214875268] Future Scheduled 2022-01-20 Pneumococcal Vaccine: [facility] Test 00:06:50 Pediatrics (0 to 5 Years) and At-Risk Patients (6 to 64 Years) (2 - PPSV23 or PCV20) [code = Pneumococcal Vaccine: Pediatrics (0 to 5 Years) and At-Risk Patients (6 to 64 Years) (2 - PPSV23 or PCV20)] Future Scheduled 2022-01-20 COLONOSCOPY SCREENING [facility] Test 00:06:50 [code = COLONOSCOPY SCREENING] Future Scheduled 2022-01-20 INFLUENZA VACCINE Method [facility] Test 00:06:50 [code = INFLUENZA VACCINE] Future Scheduled 2022-01-13 HEPATITIS B VACCINES [facility] Test 04:10:23 (1 of 3 - 3-dose series) [code = HEPATITIS B VACCINES (1 of 3 - 3-dose series)] Future Scheduled 2022-01-13 COVID-19 VACCINE (#1) [facility] Test 04:10:23 [code = COVID-19 VACCINE (#1)] Future Scheduled 2022-01-13 Hepatitis C screening [facility] Test 04:10:23 (procedure) [code = [id number]] Future Scheduled 2022-01-13 Pneumococcal Vaccine: [facility] Test 04:10:23 Pediatrics (0 to 5 Years) and At-Risk Patients (6 to 64 Years) (2 - PPSV23 or PCV20) [code = Pneumococcal Vaccine: Pediatrics (0 to 5 Years) and At-Risk Patients (6 to 64 Years) (2 - PPSV23 or PCV20)] Future Scheduled 2022-01-13 COLONOSCOPY SCREENING [facility] Test 04:10:23 [code = COLONOSCOPY SCREENING] Future Scheduled 2022-01-13 INFLUENZA VACCINE Method [facility] Test 04:10:23 [code = INFLUENZA VACCINE] Encounters Start End Encounter Admission Attending Care Care Encounter Source Date/Time Date/Time Type Type Clinicians Facility Department ID 2022-01-31 Outpatient [facility] [id number] [place] 08:11:55 [id number] Health 2022-02-02 2022-02-02 Outpatient [facility]_Tod PRIV PRIV [id number] [facility] 00:00:00 00:00:00 Ann Marie [id number] Medica l 2022-01-21 2022-01-21 Outpatient GC_BAHC_Tod PRIV PRIV [id number] [facility] 00:00:00 00:00:00 d_J [id number] Medica l 2022-01-19 2022-01-19 Outpatient GC_BAHC_Tod PRIV PRIV [id number] [facility] 00:00:00 00:00:00 d_J [id number] Medica l 2022-01-16 2022-01-16 Outpatient GC_BAHC_Tod PRIV PRIV [id number] [facility] 00:00:00 00:00:00 d_J [id number] Medica l 2022-01-13 2022-01-13 Outpatient Baron, PRIV PRIV [id number] 00:00:00 00:00:00 Roopa [id number] 2022-01-10 2022-01-10 Outpatient Baron, PRIV PRIV [id number] 00:00:00 00:00:00 Roopa [id number] 2022-01-06 2022-01-06 Outpatient GC_BAHC_Tod PRIV PRIV [id number] [facility] 00:00:00 00:00:00 d_J [id number] Medica l 2022-01-05 2022-01-05 Outpatient GC_BAHC_Tod PRIV PRIV [id number] [facility] 00:00:00 00:00:00 d_J [id number] Medica l 2022-01-03 2022-01-03 Outpatient GC_BAHC_Tod PRIV PRIV [id number] [facility] 00:00:00 00:00:00 d_J [id number] Medica l 2022-01-03 2022-01-03 Outpatient Baron, PRIV PRIV [id number] 00:00:00 00:00:00 Roopa [id number] 2021-12-30 2021-12-30 Outpatient GC_BAHC_Tod PRIV PRIV [id number] [facility] 00:00:00 00:00:00 d_J [id number] Medica l 2021-12-29 2021-12-29 Outpatient GC_BAHC_Tod PRIV PRIV [id number] [facility] 00:00:00 00:00:00 d_J [id number] Medica l 2021-12-29 2021-12-29 Outpatient Stephanie, PRIV PRIV [id number] 00:00:00 00:00:00 Humphrey Gunter [id number] 2021-12-27 2021-12-27 Outpatient GC_BAHC_Tod PRIV PRIV [id number] [facility] 00:00:00 00:00:00 d_J [id number] Medica l 2021-12-27 2021-12-27 Outpatient Baron, PRIV PRIV [id number] 00:00:00 00:00:00 Roopa [id number] 2021-12-26 2021-12-26 Outpatient GC_BAHC_Tod PRIV PRIV [id number] [facility] 00:00:00 00:00:00 d_J [id number] Medica l 2021-12-23 2021-12-23 Outpatient GC_BAHC_Tod PRIV PRIV [id number] [facility] 00:00:00 00:00:00 d_J [id number] Medica l 2021-12-23 2021-12-23 Outpatient Braon, PRIV PRIV [id number] 00:00:00 00:00:00 Roopa [id number] 2021-12-22 2021-12-22 Outpatient GC_BAHC_Tod PRIV PRIV [id number] [facility] 00:00:00 00:00:00 d_J [id number] Medica l 2021-12-21 2021-12-21 Outpatient GC_BAHC_Tod PRIV PRIV 246 [id number] [facility] 00:00:00 00:00:00 d_J [id number] Medica l 2021-12-20 2021-12-20 Outpatient GC_BAHC_Tod PRIV PRIV 246 [id number] [facility] 00:00:00 00:00:00 d_J [id number] Medica l 2021-12-20 2021-12-20 Outpatient Baron, PRIV PRIV [id number] 00:00:00 00:00:00 Roopa [id number] 2021-12-18 2021-12-18 Outpatient GC_BAHC_Tod PRIV PRIV [id number] [facility] 00:00:00 00:00:00 d_J [id number] Medica l 2021-12-16 2021-12-16 Outpatient GC_BAHC_Tod PRIV PRIV [id number] [facility] 00:00:00 00:00:00 d_J [id number] Medica l 2021-12-16 2021-12-16 Outpatient Baron, PRIV PRIV [id number] 00:00:00 00:00:00 Roopa [id number] 2021-12-13 2021-12-13 Outpatient GC_BAHC_Tod PRIV PRIV [id number] [facility] 04:57:00 04:57:00 d_J [id number] Medica l 2021-12-13 2021-12-13 Outpatient Baron, PRIV PRIV [id number] 00:00:00 00:00:00 Roopa [id number] 2021-12-09 2021-12-09 Outpatient GC_BAHC_Tod PRIV PRIV [id number] [facility] 07:47:00 07:47:00 d_J [id number] Medica l 2021-10-13 2021-10-13 Telephone Bryan, [id number] [facility] 00:00:00 00:00:00 [place] [id number] i ty of S 3.412.2.7 [place] .[id number] MD [facility] 2021-10-13 2021-10-13 Telephone Bryan, Harsha.2.840.1 [id number] [facility] 00:00:00 00:00:00 Celaysheia 72558.1.1 i ty of S 3.412.2.7 [place] .[id number] MD [facility] 2021-10-12 2021-10-12 Inpatient 1 [facility] [id number] [facility] 08:23:00 12:00:00 CURT [facility], Memoria [address] ([address], V/[place]) [place] [address] 2021-10-12 2021-10-12 Inpatient [facility] [id number] 00:00:00 00:00:00 VERMILLION [id number] [facility], [id number] Memor ia [id number] ([address], V/SA) [place] [address] 2021-10-02 2021-10-02 Emergency ER ARNIE MARTINO [id number] [facility] 01:35:00 05:48:00 [place] [id number] S Health 2021-09-24 2021-09-25 Emergency E FADSTONEYOLE, MHBL MHBL [id number] MHBL 19:50:00 04:10:00 LIZETH 2021-09-23 2021-09-23 Departed ER ARNIE BALTAZAR [id number] [facility] 18:42:00 22:57:00 Emergency TARAS [address] [facility] 2021-09-18 2021-09-18 OTHER 3 MOPUR, [facility] [id number] 09:48:00 18:28:00 CHEST PAIN PREMA [facility] [address], V/SA) [place] [address] 2021-09-18 2021-09-18 Departed ER ARNIE THOMAS [id number] [facility] 01:08:00 06:12:00 Emergency PETER 09 S Room [facility] 2021-09-18 2021-09-18 Inpatient [facility] [id number] 00:00:00 00:00:00 VERMILLION [id number] [facility], [id number] Memor ia [id number] ([address], V/[place]) [place] [address] 2021-09-18 2021-09-18 Inpatient [facility] [id number] 00:00:00 00:00:00 VERMILLION [id number] [facility], [id number] Memor ia [id number] ([address], V/SA) [place] [address] 2021-09-18 2021-09-18 Inpatient [facility] [id number] 00:00:00 00:00:00 VERMILLION [id number] [facility], [id number] Memor ia [address] [id number] ([address], V/SA) [place] [address] 2021-09-18 2021-09-18 Inpatient [facility] [id number] [facility] [address] 00:00:00 00:00:00 VERMILLION [id number] [facility], [id number] Memor ia [id number] ([address], V/SA) [place] [address] 2021-08-31 2021-08-31 Departed ER SAWYER RYAN AP0 [id number] [facility] 06:59:00 10:24:00 Emergency 08 S [facility] 2021-07-20 2021-07-20 Departed ER ARNIE ACOSTA [id number] [facility] 18:23:00 20:00:00 Emergency [place] [address] [facility] 2020-11-11 2020-11-12 Emergency [facility]AD[place], [facility] [id number] 64 [place] 00:00:00 00:00:00 PATRICK [address] 2020-07-20 2020-07-20 Emergency [place] [id number] [place] 00:00:00 00:00:00 RAYA [address] 2020-06-27 2020-06-27 Emergency [facility] [place] 716 [id number] [place] 00:00:00 00:00:00 ELISHA [address] [...] code = UKET) NEGATIVE NEGATIVE N Specific [place] (test code 1.020 1.005-1.030 A = USPGR) [...] SEEN A (test code = NSE) AMYLASE, [id number] 11:25:00 Test Item Value Reference Range Interpretation Comments Amylase (test code = AMYL) 68 U/L 25-115 [id number] 11:25:00 Test Item Value Reference Range Interpretation [...] 0.0-1.1 IBIL) STAT LAB CBC WITH AUTO [id number] 10:58:00 Test Item Value Reference Range Interpretation [...] 1.1 % 0.0-0.4 H STAT LAB CHEM [id number] 10:58:00 Test Item Value Reference Range Interpretation [...] 23.0 mmol/l 24.0-29.[address] ABDOMEN/PELVIS W/O [id number] 09:55:19 [place] [facility] (LU/ERIKA/SA)Name: SÁNCHEZ SHEPHERD : 1975 Sex: MProcedure: CT ABDOMEN/PELVIS W/O CONTRASTOrder Date: 10/12/2021 9:06 AMOrdering Provider: CURT GALLEGOlinical Indication: [id number]: Lower abdominal painComparison: Ultrasound September 18, 2021TECHNIQUE:CT [...] 29:49 AMDictated By: MALU HERNANDEZKDate: 09:49COMPLEMENT COMPONENT [id number] 10:26:00 Test Item Value Reference Range Interpretation Comments COMPLEMENT C4, SERUM (test code = 30 mg/dL 12-38 N [id number]) PERFORMED AT: [facility] [address] [id number] CRANIOLOGIST: Wilfredo Grullon MD PHONE: [phone] blood leukocyte count (number/volume)2021-09-23 20:01:00 Test Item Value Reference Range Interpretation Comments White Blood Count (test code = 6690-2) 7.5 4.5-11.5 [facility] automated count (number/volume)2021-09-23 20:01:00 Test Item [...] = 786-4) [facility] HealthAutomated erythrocyte distribution width [id number] 20:01:00 Test Item Value Reference Range Interpretation Comments Red Cell Distribution Width (test code 13.3 10.7-14.5 = 788-0) [facility] blood platelet count (count/volume)2021-09-23 20:01:00 Test Item Value Reference Range Interpretation Comments Platelet Count (test code = 777-3) 370 150-450 [facility] blood platelet mean volume [id number] 20:01:00 Test Item Value Reference Range Interpretation Comments Mean Platelet Volume (test code = 8.4 5.7-10.7 35175-2) [facility]Automated blood neutrophil count as percentage of total idbsvyfgpt8059-68-71 20:01:00 Test Item Value Reference Range Interpretation Comments Neutrophils (%) (Auto) (test code = 51 83-75 770-8) [facility] HealthAutomated blood lymphocyte count as percentage of total eslugrjuzl0793-11-36 20:01:00 Test Item Value Reference Range Interpretation Comments Lymphocytes (%) (Auto) (test code = 25 25-44 736-9) [facility] HealthAutomated blood monocyte count as percentage of total leukocytes 2021-09-23 20:01:00 Test Item Value Reference Range Interpretation Comments Monocytes (%) (Auto) (test code = 7 3-10 5905-5) [facility] HealthAutomated blood eosinophil count as percentage of total jyhadmwhpo2874-66-29 20:01:00 Test Item Value Reference Range Interpretation [...] (Auto) (test code = 1.9 1.4-4.1 731-0) [facility] HealthBlood monocytes automated count (number/volume)2021-09-23 20:01:00 Test Item Value Reference Range Interpretation Comments Monocytes # (Auto) (test code = 742-7) 0.6 0-1.3 [facility] HealthAutomated blood eosinophil svdmb7321-91-21 20:01:00 Test Item Value Reference Range Interpretation Comments Eosinophils # (Auto) (test code = 1.2 0-0.8 711-2) [facility] HealthAutomated blood basophil count (number/volume)2021-09-23 20:01:00 Test Item Value Reference Range Interpretation Comments Basophils # (Auto) (test code = 704-7) 0.1 0-0.1 [facility] comment [id number] 20:01:00 Test Item Value Reference Range Interpretation Comments Manual Differential (test code = Not Ind 8265-1) [facility] HealthD dimer DDU URE-nTvb1758-56-06 20:01:00 Test Item Value Reference Range Interpretation Comments D-Dimer (test code = 17604-1) 636 0-500 [facility] HealthSodium KncFh-mSqj1547-36-06 20:01:00 Test Item Value Reference Range Interpretation [...] Comments Carbon Dioxide Level (test code = 26 22-29 2027-9) [facility] HealthSerum or plasma anion gap determination (moles/volume)2021-09-23 20:01:00 Test Item Value Reference Range Interpretation Comments Anion Gap (test code = 95330-1) 13 8-18 [facility] HealthSerum or plasma urea nitrogen measurement (mass/volume)2021-09-23 20:01:00 Test Item Value Reference Range Interpretation Comments Blood Urea Nitrogen (test code = 02-08 3094-0) [facility] HealthSerum or plasma creatinine measurement (mass/volume)2021-09-23 20:01:00 Test Item Value Reference Range Interpretation Comments Creatinine (test code = 2160-0) 0.8 0.7-1.3 [facility] HealthGFR/BSA.pred SerPl EBJD-TlKTfe6957-15-06 20:01:00 Test Item Value Reference Range Interpretation Comments Estimat Glomerular Filtration Rate 111 73-125 (test code = 82286-1) [facility] HealthSerum or plasma urea nitrogen/creatinine mass nsnny2308-74-87 20:01:00 Test Item Value Reference Range Interpretation Comments BUN/Creatinine Ratio (test code = 13 3097-3) [facility] HealthSerum or plasma glucose measurement (mass/volume)2021-09-23 20:01:00 Test Item Value Reference Range Interpretation Comments Glucose Level (test code = 2345-7) 130 60-100 [facility] HealthOsmolality SerPl [id number] 20:01:00 Test Item Value Reference Range Interpretation Comments Calculated Osmolality (test code = 282 64377-2) [facility] HealthSerum or plasma calcium measurement (mass/volume)2021-09-23 20:01:00 Test Item Value Reference Range Interpretation Comments Calcium Level (test code = 80483-0) 9.5 8.4-10.2 [facility] HealthSerum or plasma total bilirubin measurement (mass/volume) 2021-09-23 20:01:00 Test Item Value Reference Range Interpretation Comments Total Bilirubin (test code = 1975-2) 0.3 0.2-1.2 [facility] HealthSerum or plasma aspartate [...] Range Interpretation Comments Globulin (test code = 01383-6) 3.2 [facility] HealthSerum or plasma albumin/globulin mass ennjk3204-61-69 20:01:00 Test Item Value Reference Range Interpretation Comments Albumin/Globulin Ratio (test code = 1.2 1759-0) [facility] HealthSerum or plasma alkaline phosphatase measurement (enzymatic activity/volume)2021-09-23 20:01:00 Test Item Value Reference Range Interpretation Comments Alkaline Phosphatase (test code = 57 40-150 6768-6) [facility] HealthTroponin I AcqYv-uBbn2308-28-06 20:01:00 Test Item Value Reference Range Interpretation Comments Troponin I (test code = 36691-4) < 0.01 0.00-0.03 ARNIE RiosA [id number] 07:59:00 Test Item Value Reference Range Interpretation Comments ANTIMYELOPEROXIDASE (MPO) <9.0 U/mL 0.0-9.0 N ABS (test code = 545111) ANTIPROTEINASE 3 (ND-3) <3.5 U/mL 0.0-3.5 N ABS (test code = 809282) CYTOPLASMIC (C-ANCA) <1:20 titer See_Comment N [Autom ated (test code = 295632) message ] The system which generated this result transmitted reference range : Neg:<1:20. The reference range was not used to interpret this result as normal/abnormal . PERINUCLEAR (P-ANCA) <1:20 titer See_Comment N The pre sence of (test code = 402182) positiv e fluorescence exhibiting P-AN CA or C-ANCA patte rns alone is not specific for th e diagnosis of Demetra's Granulomatosis (WG) or microscopic polyangiitis. Decisions about treatment shoul d not be based so princess on ANCA IFA results. The International A NCA [employer] Consensus recommends foll ow up testing of positive sera w ith both ND-3 and MPO-ANCA enzyme immunoassays. A s many as 5% seru m samples are positive only b y EIA. Ref. AM J Clin Pathol 1999;111:507-51 3. [Automated mess age] The system [employer] generated this result transmit jayro reference range : Neg:<1:20. The reference range was not used to interpret this result as normal/abnormal . ATYPICAL PANCA (test code <1:20 titer See_Comment N Th e atypical pANCA = 629961) pattern has bee n observed in a significant percentage of patients with ulcerative coli tis, primary scleros ing cholangitis and autoimmune hepatitis. [Automated mess age] The system [employer] generated this result transmit jayro reference range : Neg:<1:20. The reference range was not used to interpret this result as normal/abnormal . PROTEIN, TOTAL AND PROTEIN [id number] 07:59:00 Test Item Value Reference Range Interpretation Comments PROTEIN, TOTAL, 7.0 g/dL 6.0-8.5 N BLOOD (test code = 919581) ALBUMIN (test 3.7 g/dL 2.9-4.4 N code = 202345) AAHVF-0-GRVZGGNU 0.2 g/dL 0.0-0.4 N (test code = 707569) FOHPL-2-NHYVVSPZ 0.8 g/dL 0.4-1.0 N (test code = 555489) BETA GLOBULIN 1.2 g/dL 0.7-1.3 N (test code = 052997) GAMMA GLOBULIN 1.1 g/dL 0.4-1.8 N (test code = 503192) M-SPIKE (test Not Observed Not Observed N code = 579920) g/dL GLOBULIN, TOTAL 3.3 g/dL 2.2-3.9 N (test code = 650195) A/G RATIO (test 1.1 0.7-1.7 N code = 185146) PLEASE NOTE: Comment Protein (test code = electrophoresis scan 543031) will follow via computer, mail, or certified prosthetist vice president deliver y. PERFORMED AT: [facility] [address] [id number] CRANIOLOGIST: Wilfredo Grullon MD PHONE: [phone] PERFORMED AT: [facility] [id number] [facility] [address] [place], [place] [id number] CRANIOLOGIST: MALKA Miles MD PHONE: [phone] COMPONENT [id number] 10:19:00 Test Item Value Reference Range Interpretation Comments COMPLEMENT C3, SERUM (test code = 184 mg/dL 82-167 H 092212) PERFORMED AT: [facility] [address] [id number] CRANIOLOGIST: Wilfredo Grullon MD PHONE: [phone] BASEMENT MEMBRANE ANTIBODY (IGG)2021-09-20 08:28:00 Test Item Value Reference Range Interpretation Comments ANTIGLOMERULAR BM AB (test 3 units 0-20 N Negative 0 - 20 code = 868719) Weak Positive 21 - 30 Moderate to Strong Positive >30 PERFORMED AT: [facility] [id number] CRANIOLOGIST: David Richardson MD PHONE: [phone], TOTAL (CH50) 2021-09-20 07:15:00 Test Item Value Reference Range Interpretation Comments COMPLEMENT, TOTAL >60 U/mL >41 N Age Male Female 1 - 30 (CH50) (test code = days Not Estab. Not 637483) Estab. 31 days - 6 months >32 >20 7 months - 17 years >39 >39 >17 years >41 >41 * *NOTE: The adult (">17 years") reference inter chad range is used t o flag abnormals on is report. If the patient is 17 years old or younger, use e table above to determ ine out of range values . PERFORMED AT: [facility] [id number] CRANIOLOGIST: David Richardson MD PHONE: [phone] 16:51:00 Test Item Value Reference Range Interpretation [...] H code = CREA) EGFR if 38 Algerian (test code mL/min/1.73m\\ = EGFRAA) S\\2 EGFR if Non- 31 Estimate d Glomerular Algerian (test code mL/min/1.73m\\ Filtrat ion Rate (eGFR) [...] of c hronic kidney failure. HIGH SENSITIVITY [id number] 16:51:00 Test Item Value Reference Range Interpretation [...] and 53 pg/mL fo r MALE. New crit ical values will be called for any troponi n greater than or equal to 500 pg/mL. PROTEIN/CREATNINE RATIO, Random [id number] 14:13:00 Test Item Value Reference Range Interpretation Comments Creatinine Urine Random (test 177.0 mg/dl 10.0-300.0 code = CREAR) Protein, Random Urine (test code 31.5 mg/dl 0.0-11.9 H = PROTU) Protein-Creatinine Ratio, Urine 0.18 % 0.00-0.20 (test code = PCRATIO) DRUG SCREEN [id number] 13:36:00 Test Item Value Reference Range Interpretation [...] D rugs of Abuse ran on Siemens [place] analyzer listed there in: Amphe tamines < 1000 ng/ml = N egative Barbituates < 2 00 ng/ml = Negative Benzodiazapines < 200 ngml = Negative Cocaine < 300 ng/ml = N egative Methadone < 300 ng/ml = Negative Opiate < 300 ng/ml = Negativ e PCP < 25 ng/ml = Nega tive THC < 50 ng/ml = Ne gative Results equal t o or greater than e above cut-off values = Presumptive Pos itive. Confirmation of Presumptive Pos itive results are jyoti ilable upon request. Cannabinoids, THC (test NEG code = THC) [id number] 12:37:00 Test Item Value Reference Range Interpretation Comments CPK (test code = CPK) 144 U/L 26-308 HIGH SENSITIVITY [id number] 12:36:00 Test Item Value Reference Range Interpretation [...] equal to 500 pg/mL. HEPATITIS PANEL (AMA 29494)2021-09-18 11:09:00 Test Item Value Reference Range Interpretation [...] H US RENAL & BLADDER (KIDNEYS)2021-09-18 10:44:25 [facility] (LU/ERIKA/SA)Name: SÁNCHEZ SHEPHERD : 1975 Sex: MProcedure: US RENAL & BLADDER (KIDNEYS)Order Date: 09/18/2021 8:18 AMOrdering Provider: SWATHI SU .Clinical Indication: N18.9: CHRONIC KIDNEY DISEASE, UNSPECIFIEDComparison: NoneTechnique: Real-time ultrasonography was obtained over the kidneys and urinarybladder and sales representative facility services images were recorded.Findings:The right kidney is normal [...] AMDictated By: CLEMENT MYRICK.Date: 09/18/2021 10:39 GLYCOSALATED [id number] 10:19:00 Test Item Value Reference Range Interpretation Comments Hemoglobin A1C (test 6.1 % 4.2-6.3 A code = GLYCO) Mean Plasma Glucose 140 mg/dl 90-180 WHEN NAMAN T RESULTS FOR (test code = MPG) A1C EXCEED 14.0, THE LINEAR LIMIT OF THE INSTRUMENT, THE CALCULATED RESU LT FOR THE MEAN GLUCOS E IS NOT RELIABLE. XR CHEST AP/PA 1 [id number] 10:11:24 [facility] ([facility]/)Name: SÁNCHEZ SHEPHERD : 1975 Sex: MProcedure: XR [...] Clement Myrick MD 0:05 AMDictated By: CLEMENT MYRICKDate: 09/18/2021 10:[id number] 09:56:00 Test Item Value Reference Range Interpretation Comments Phosphorus (test code = PHOS) 7.6 mg/dl 2.5-4.9 H [id number] 09:56:00 Test Item Value Reference Range Interpretation Comments Ferritin (test code = FERR) 88.4 ng/ml 26.0-388.0 IRON [id number] 09:56:00 Test Item Value Reference Range Interpretation Comments Iron (test code = FETOT) 62 ug/dl 65-175 L TIBC (test code = TIBC) 317 ug/dl 250-450 Iron Saturation (test code = FESAT) 20 % 16-62 TSH (Ultra Sensitive)2021-09-18 09:56:00 Test Item Value Reference Range Interpretation Comments TSH (test code = TSH) 1.60 mIU/L 0.35-3.74 HIGH SENSITIVITY [id number] 09:56:00 Test Item Value Reference Range Interpretation Comments HIGH SENSITIVITY 65.3 pg/ml 0.0-53.0 H CHANGE IN T EST METHOD TROPONIN (test code = Radha arguello ge in the test TNIH) method [...] than or equal to 500 pg/mL. VITAMIN [id number] 09:56:00 Test Item Value Reference Range Interpretation Comments Vitamin D (test code = 18.99 VITAM IN D NORMAL RANGES: TVITD) Deficient <20 I nsufficient 20-<30 Sufficie nt 30-100 Potential Toxic ity >100 [id number] 09:56:00 Test Item Value Reference Range Interpretation Comments Magnesium (test code = MG) 2.9 mg/dl 1.6-2.6 H [id number] 09:56:00 Test Item Value Reference Range Interpretation [...] ( 4 - SerumAlbumin)] EGFR if 25 Algerian (test code mL/min/1.73m\\ = EGFRAA) S\\2 EGFR if Non- 21 Estimate d Glomerular Algerian (test code mL/min/1.73m\\ Filtrat ion Rate (eGFR) [...] management of c hronic kidney failure. URIC [id number] 09:56:00 Test Item Value Reference Range Interpretation Comments Uric Acid (test code = URICA) 12.0 mg/dl 3.5-7.2 H CORONARY [id number] 09:56:00 Test Item Value Reference Range Interpretation [...] 36 mg/dl 30-60 VLDL) CBC WITH AUTO [id number] 09:23:00 Test Item Value Reference Range Interpretation [...] 0-2 code = NRBC_AUTO) Urinalysis specimen collection [id number] 04:50:00 Test Item Value Reference Range Interpretation Comments Urine Source (test code = 59049-1) URINE [facility] HealthColor of Urine by [id number] 04:50:00 Test Item Value Reference Range Interpretation Comments Urine Color (test code = 20722-1) Yellow Yel-Ying * [facility] HealthUrine clarity qtnlfcsvxoedi8953-76-82 04:50:00 Test Item Value Reference Range Interpretation Comments Urine Appearance (test code = 01514-5) Clear Clear * [facility] HealthUrine pH measurement by automated test [id number] 04:50:00 Test Item Value Reference Range Interpretation Comments Urine pH (test code = 05099-8) 5.0 5.0-8.0 [facility] HealthSpecific gravity of Urine by Automated test [id number] 04:50:00 Test Item Value Reference Range Interpretation Comments Urine Specific [place] (test code = 1.016 1.005-1.030 37391-8) [facility] HealthUrine protein measurement by automated test strip (mass/volume) 2021-09-18 04:50:00 Test Item Value Reference Range Interpretation Comments Urine Protein (test code = 45858-8) 50 Negative * [facility] HealthUrine glucose measurement by automated test strip (mass/volume) 2021-09-18 04:50:00 Test Item Value Reference Range Interpretation Comments Urine Glucose (UA) (test code = Negative Negative * 56269-5) [facility] HealthKetones [Mass/volume] in Urine by Automated test [id number] 04:50:00 Test Item Value Reference Range Interpretation Comments Urine Ketones (test code = 96970-3) Negative Negative * [facility] HealthUrine erythrocytes count by automated test strip (number/volume) 2021-09-18 04:50:00 Test Item Value Reference Range Interpretation Comments Urine Occult Blood (test code = Trace Negative * 68689-7) [facility] HealthUrine nitrite detection by automated test [id number] 04:50:00 Test Item Value Reference Range Interpretation Comments Urine Nitrite (test code = 76997-9) Negative Negative [facility] HealthUrine total bilirubin measurement by automated test strip (mass/volume)2021-09-18 04:50:00 Test Item Value Reference Range Interpretation Comments Urine Bilirubin (test code = Negative Negative 25074-2) [facility] HealthUrine urobilinogen measurement by automated test strip (mass/volume)2021-09-18 04:50:00 Test Item Value Reference Range Interpretation Comments Urine Urobilinogen (test code = Negative 0.0-1.0 69718-2) [facility] HealthUrine leukocytes count by automated test strip (number/volume) 2021-09-18 04:50:00 Test Item Value Reference Range Interpretation Comments Urine Leukocyte Esterase (test code = 25 Negative 14346-5) [facility] HealthMicroscopic examination of azzqq3863-05-17 04:50:00 Test Item Value Reference Range Interpretation Comments Microscopic Urinalysis (T) (test code = ----- 97253-0) [facility] HealthUrine sediment erythrocyte count by microscopy (number/high power field)2021-09-18 04:50:00 Test Item Value Reference Range Interpretation Comments Urine RBC (test code = 33280-8) 3-10 0-2 [facility] HealthUrine sediment leukocyte count [...] (test code = None Seen None * 31852-5) [facility] HealthUrine sediment bacteria count by microscopy [...] HealthYeast detection in urine sediment by light oadqxsshli2835-65-27 04:50:00 Test Item Value Reference Range Interpretation Comments Urine Yeast (test code = 81789-6) None Seen None [facility] comment 04:50:00 Test Item Value Reference Range Interpretation Comments Urinalysis Comment (test * See_Comment [A utomated message] The code = 8262-8) system which generated this result tra nsmitted reference range : *. The reference range was not used to interpr et this result as normal/abnormal . [facility] HealthUrine methamphetamine bpxbuc9704-04-17 04:50:00 Test Item Value Reference Range Interpretation Comments Urine Methamphetamines Screen (test Positive Rylljl=423 code = 98055-1) [facility] HealthUrine propoxyphene screening [id number] 04:50:00 Test Item Value Reference Range Interpretation Comments Urine Propoxyphene Screen (test code Negative Sajddi=580 = 12181-9) [facility] HealthUrine amphetamines detection by screening yimysk9688-61-50 04:50:00 Test Item Value Reference Range Interpretation Comments Urine Amphetamines Screen (test code Positive Vzdoho=170 = 18426-4) [facility] HealthUrine buprenorphine screen with reflex dyfhcstscgoo8995-22-39 04:50:00 Test Item Value Reference Range Interpretation Comments Urine Buprenorphine (test code = Negative Cutoff=10 41709-2) [facility] HealthUrine barbiturates detection by screening ekjcrh8083-72-99 04:50:00 Test Item Value Reference Range Interpretation Comments Urine Barbiturates Screen (test code Negative Rvcwgt=428 = 63852-2) [facility] HealthUrine benzodiazepines detection by screening xwgbky9393-77-75 04:50:00 Test Item Value Reference Range Interpretation Comments Urine Benzodiazepines Screen (test Negative Kxncsf=746 code = 68040-8) [facility] HealthUrine benzoylecgonine detection by screening ujxwzj8627-74-95 04:50:00 Test Item Value Reference Range Interpretation Comments Urine Cocaine Screen (test code = Negative Hssjhq=536 99983-9) [facility] HealthUrine methadone avidid4787-44-56 04:50:00 Test Item Value Reference Range Interpretation Comments Urine Methadone, Qualitative (test Negative Apfbnn=477 code = 29734-6) [facility] HealthUrine opiates screening hvep0911-45-44 04:50:00 Test Item Value Reference Range Interpretation Comments Urine Opiates Screen (test code = Negative Uudtct=433 21020-2) [facility] HealthUrine phencyclidine detection by screening mqiycr6273-06-01 04:50:00 Test Item Value Reference Range Interpretation Comments Urine Phencyclidine Screen (test Negative Cutoff=25 code = 35059-1) [facility] HealthUrine cannabinoids detection by screening hmsbrl5792-47-93 04:50:00 Test Item Value Reference Range Interpretation Comments Urine Cannabinoids (test code = Negative Cutoff=50 31131-3) [facility] HealthScreening urine tricyclic antidepressants fzwyddiey6070-28-05 04:50:00 Test Item Value Reference Range Interpretation Comments Ur Tricyclic Antidepressants Screen Negative Qicned=684 (test code = 82662-8) [facility] HealthUrine oxycodone detection by screening irxfmn8550-97-93 04:50:00 Test Item Value Reference Range Interpretation Comments Urine Oxycodone Screen (test code = Negative Osxaeq=303 63906-9) [facility] HealthSpecific gravity of Urine by Automated test hbsrv5552-55-14 04:50:00 Test Item Value Reference Range Interpretation Comments Urine Specific [place] (test code = 1.016 1.005-1.030 83445-2) [facility] HealthUrine pH measurement by automated test nqwlo0136-09-73 04:50:00 Test Item Value Reference Range Interpretation Comments Urine pH (test code = 26627-1) 5.0 5.0-8.0 [facility] HealthUrine drug screen comment ufkwogtwgqjgat8265-08-86 04:50:00 Test Item Value Reference Range Interpretation Comments Urine Drug Screen Comment (test code See Note = 55232-6) [facility]LE[facility] HealthUrinalysis specimen collection [id number] 04:50:00 Test Item Value Reference Range Interpretation Comments Urine Source (test code = 26982-3) URINE [facility] HealthColor of Urine by Hbva0560-09-61 04:50:00 Test Item Value Reference Range Interpretation Comments Urine Color (test code = 93061-0) Yellow Yel-Ying * [facility] HealthUrine clarity tdrupmwviiaxy1474-28-07 04:50:00 Test Item Value Reference Range Interpretation Comments Urine Appearance (test code = 22109-6) Clear Clear * [facility] HealthUrine pH measurement by automated test flvsf3311-91-05 04:50:00 Test Item Value Reference Range Interpretation Comments Urine pH (test code = 22442-6) 5.0 5.0-8.0 [facility] HealthSpecific gravity of Urine by Automated test bkatl3567-25-44 04:50:00 Test Item Value Reference Range Interpretation Comments Urine Specific [place] (test code = 1.016 1.005-1.030 12592-5) [facility] HealthUrine protein measurement by automated test strip (mass/volume) 2021-09-18 04:50:00 Test Item Value Reference Range Interpretation Comments Urine Protein (test code = 01374-1) 50 Negative * [facility] HealthUrine glucose measurement by automated test strip (mass/volume) 2021-09-18 04:50:00 Test Item Value Reference Range Interpretation Comments Urine Glucose (UA) (test code = Negative Negative * 08627-1) [facility] HealthKetones [Mass/volume] in Urine by Automated test gwflb2644-65-08 04:50:00 Test Item Value Reference Range Interpretation Comments Urine Ketones (test code = 87855-9) Negative Negative * [facility] HealthUrine erythrocytes count by automated test strip (number/volume) 2021-09-18 04:50:00 Test Item Value Reference Range Interpretation Comments Urine Occult Blood (test code = Trace Negative * 39104-1) [facility] HealthUrine nitrite detection by automated test ukgou3939-55-34 04:50:00 Test Item Value Reference Range Interpretation Comments Urine Nitrite (test code = 76781-2) Negative Negative [facility] HealthUrine total bilirubin measurement by automated test strip (mass/volume)2021-09-18 04:50:00 Test Item Value Reference Range Interpretation Comments Urine Bilirubin (test code = Negative Negative 45039-1) [facility] HealthUrine urobilinogen measurement by automated test strip (mass/volume)2021-09-18 04:50:00 Test Item Value Reference Range Interpretation Comments Urine Urobilinogen (test code = Negative 0.0-1.0 69539-6) [facility] HealthUrine leukocytes count by automated test strip (number/volume) 2021-09-18 04:50:00 Test Item Value Reference Range Interpretation Comments Urine Leukocyte Esterase (test code = 25 Negative 69675-6) [facility] HealthMicroscopic examination of cpuhu7656-87-63 04:50:00 Test Item Value Reference Range Interpretation Comments Microscopic Urinalysis (T) (test code = ----- 75136-9) [facility] HealthUrine sediment erythrocyte count by microscopy (number/high power field)2021-09-18 04:50:00 Test Item Value Reference Range Interpretation Comments Urine RBC (test code = 45257-6) 3-10 0-2 [facility] HealthUrine sediment leukocyte count [...] (test code = None Seen None * 22020-9) [facility] HealthUrine sediment bacteria count by microscopy (number/high [...] HealthYeast detection in urine sediment by light zgeyruwtlu0878-35-20 04:50:00 Test Item Value Reference Range Interpretation Comments Urine Yeast (test code = 80133-3) None Seen None [facility] comment 04:50:00 Test Item Value Reference Range Interpretation Comments Urinalysis Comment (test * See_Comment [A utomated message] The code = 8262-8) system which generated this result tra nsmitted reference range : *. The reference range was not used to interpr et this result as normal/abnormal . [facility] HealthUrine methamphetamine ithjmh1487-44-81 04:50:00 Test Item Value Reference Range Interpretation Comments Urine Methamphetamines Screen (test Positive Ozjtte=986 code = 64723-5) [facility] HealthUrine propoxyphene screening ohud4480-35-02 04:50:00 Test Item Value Reference Range Interpretation Comments Urine Propoxyphene Screen (test code Negative Ytluev=452 = 67178-8) [facility] HealthUrine amphetamines detection by screening egmxtc3276-38-11 04:50:00 Test Item Value Reference Range Interpretation Comments Urine Amphetamines Screen (test code Positive Zzqzkx=229 = 81084-1) [facility] HealthUrine buprenorphine screen with reflex kxgragbkhboy9361-26-17 04:50:00 Test Item Value Reference Range Interpretation Comments Urine Buprenorphine (test code = Negative Cutoff=10 47385-4) [facility] HealthUrine barbiturates detection by screening mjhehj1365-19-25 04:50:00 Test Item Value Reference Range Interpretation Comments Urine Barbiturates Screen (test code Negative Mwvvne=104 = 68540-7) [facility] HealthUrine benzodiazepines detection by screening [id number] 04:50:00 Test Item Value Reference Range Interpretation Comments Urine Benzodiazepines Screen (test Negative Mqwpzg=869 code = 01996-1) [facility] HealthUrine benzoylecgonine detection by screening [id number] 04:50:00 Test Item Value Reference Range Interpretation Comments Urine Cocaine Screen (test code = Negative Eyywcm=746 21814-6) [facility] HealthUrine methadone [id number] 04:50:00 Test Item Value Reference Range Interpretation Comments Urine Methadone, Qualitative (test Negative Okgkbc=446 code = 15885-3) [facility] HealthUrine opiates screening [id number] 04:50:00 Test Item Value Reference Range Interpretation Comments Urine Opiates Screen (test code = Negative Okllav=150 49278-6) [facility] HealthUrine phencyclidine detection by screening [id number] 04:50:00 Test Item Value Reference Range Interpretation Comments Urine Phencyclidine Screen (test Negative Cutoff=25 code = 02818-0) [facility] HealthUrine cannabinoids detection by screening [id number] 04:50:00 Test Item Value Reference Range Interpretation Comments Urine Cannabinoids (test code = Negative Cutoff=50 88572-4) [facility] HealthScreening urine tricyclic antidepressants [id number] 04:50:00 Test Item Value Reference Range Interpretation Comments Ur Tricyclic Antidepressants Screen Negative Pzbmdu=477 (test code = 70314-5) [facility] HealthUrine oxycodone detection by screening [id number] 04:50:00 Test Item Value Reference Range Interpretation Comments Urine Oxycodone Screen (test code = Negative Gbrnzo=438 80685-5) [facility] HealthSpecific gravity of Urine by Automated test [id number] 04:50:00 Test Item Value Reference Range Interpretation Comments Urine Specific [place] (test code = 1.016 1.005-1.030 52483-8) [facility] HealthUrine pH measurement by automated test [id number] 04:50:00 Test Item Value Reference Range Interpretation Comments Urine pH (test code = 65259-4) 5.0 5.0-8.0 [facility] HealthUrine drug screen comment [id number] 04:50:00 Test Item Value Reference Range Interpretation Comments Urine Drug Screen Comment (test code See Note = 30035-9) [facility] MoncadaSpecimen source [id number] 03:52:00 Test Item Value Reference Range Interpretation Comments Coronavirus 2019 Source (test code Nasal swab = 14339-9) [facility] MoncadaQxrttmOFNJ-ZaH-5 RdRp Resp Ql MART+[id number] 03:52:00 Test Item Value Reference Range Interpretation Comments SARS CoV-2 RNA Rapid MART (test code Negative Negative = 47535-6) [facility] Mon[facility]adaSpecimen source [id number] 03:52:00 Test Item Value Reference Range Interpretation Comments Coronavirus 2019 Source (test code Nasal swab = 90681-6) ARNIE MoncadaRcdymnFTQJ-IeX-5 RdRp Resp Ql MART+[id number] 03:52:00 Test Item Value Reference Range Interpretation Comments SARS CoV-2 RNA Rapid MART (test code Negative Negative = 75888-8) [facility] HealthAutomated erythrocyte mean corpuscular volume (MCV) measurement 2021-09-18 01:20:00 Test Item Value Reference Range Interpretation Comments Mean Corpuscular Volume (test code = 88.5 80-94 787-2) [facility] HealthAutomated erythrocyte mean corpuscular hemoglobin (mass per erythrocyte)2021-09-18 01:20:00 Test Item Value Reference Range Interpretation Comments Mean Corpuscular Hemoglobin (test code 29.6 27.0-33.0 = 785-6) [facility] HealthAutomated erythrocyte mean corpuscular hemoglobin concentration measurement (mass/volume)2021-09-18 01:20:00 Test Item Value Reference Range Interpretation Comments Mean Corpuscular Hemoglobin Concent 33.5 33.0-37.0 (test code = 786-4) [facility] HealthAutomated erythrocyte distribution width [id number] 01:20:00 Test Item Value Reference Range Interpretation Comments Red Cell Distribution Width (test code 13.8 10.7-14.5 = 788-0) [facility] HealthAutomated blood platelet count (count/volume)2021-09-18 01:20:00 Test Item Value Reference Range Interpretation Comments Platelet Count (test code = 777-3) 413 150-450 [facility] HealthAutomated blood platelet mean volume vilfvarzjsx6654-56-67 01:20:00 Test Item Value Reference Range Interpretation Comments Mean Platelet Volume (test code = 8.6 5.7-10.7 99295-0) [facility] HealthAutomated blood neutrophil count as percentage of total iczzpdakyl7169-64-58 01:20:00 Test Item Value Reference Range Interpretation Comments Neutrophils (%) (Auto) (test code = 70 47-75 770-8) [facility] HealthAutomated blood lymphocyte count as percentage of total kbszmbxclj6885-23-47 01:20:00 Test Item Value Reference Range Interpretation Comments Lymphocytes (%) (Auto) (test code = 14 25-44 736-9) [facility] HealthAutomated blood monocyte count as percentage of total leukocytes 2021-09-18 01:20:00 Test Item Value Reference Range Interpretation Comments Monocytes (%) (Auto) (test code = 7 3-10 5905-5) [facility] HealthAutomated blood eosinophil count as percentage of total [id number] 01:20:00 Test Item Value Reference Range Interpretation [...] 742-7) 0.9 0-1.3 [facility] HealthAutomated blood eosinophil [id number] 01:20:00 Test Item Value Reference Range Interpretation Comments Eosinophils # (Auto) (test code = 1.0 0-0.8 711-2) [facility] HealthAutomated blood basophil count (number/volume)2021-09-18 01:20:00 Test Item Value Reference Range Interpretation Comments Basophils # (Auto) (test code = 704-7) 0.1 0-0.1 [facility] HealthService comment [id number] 01:20:00 Test Item Value Reference Range Interpretation Comments Manual Differential (test code = Not Ind 8265-1) [facility] HealthD dimer DDU [id number]-[id number] 01:20:00 Test Item Value Reference Range Interpretation Comments D-Dimer (test code = 69090-7) 416 0-500 [facility] HealthSodium OzbEs-lLlf0264-50-01 01:20:00 Test Item Value Reference Range Interpretation [...] Comments Carbon Dioxide Level (test code = -29 2027-9) [facility] HealthSerum or plasma anion gap determination (moles/volume)2021-09-18 01:20:00 Test Item Value Reference Range Interpretation Comments Anion Gap (test code = 70107-9) 23 8-18 [facility] HealthSerum or plasma urea nitrogen measurement (mass/volume)2021-09-18 01:20:00 Test Item Value Reference Range Interpretation Comments Blood Urea Nitrogen (test code = 52 9-21 3094-0) [facility] HealthSerum or plasma creatinine measurement (mass/volume)2021-09-18 01:20:00 Test Item Value Reference Range Interpretation Comments Creatinine (test code = 2160-0) 4.8 0.7-1.3 [facility] HealthGFR/BSA.pred SerPl DOSI-[id number] 01:20:00 Test Item Value Reference Range Interpretation Comments Estimat Glomerular Filtration Rate 14 73-125 (test code = 23890-8) [facility] HealthSerum or plasma urea nitrogen/creatinine mass [id number] 01:20:00 Test Item Value Reference Range Interpretation Comments BUN/Creatinine Ratio (test code = 11 3097-3) [facility] HealthSerum or plasma glucose measurement (mass/volume)2021-09-18 01:20:00 Test Item Value Reference Range Interpretation Comments Glucose Level (test code = 2345-7) 156 60-100 [facility] HealthOsmolality SerPl [id number] 01:20:00 Test Item Value Reference Range Interpretation Comments Calculated Osmolality (test code = 295 47980-0) [facility] HealthSerum or plasma calcium measurement (mass/volume)2021-09-18 01:20:00 Test Item Value Reference Range Interpretation Comments Calcium Level (test code = 36031-7) 9.2 8.4-10.2 [facility] HealthSerum or plasma total bilirubin measurement (mass/volume) 2021-09-18 01:20:00 Test Item Value Reference Range Interpretation Comments Total Bilirubin (test code = 1975-2) 0.8 0.2-1.2 [facility] HealthSerum or plasma aspartate aminotransferase measurement (enzymatic activity/volume)2021-09-18 01:20:00 Test Item Value Reference Range Interpretation Comments Aspartate Amino Transf (AST/SGOT) (test 20 5-34 code = 1920-8) [facility] HealthSerum or plasma alanine aminotransferase measurement (enzymatic [...] Albumin (test code = 1751-7) 4.4 3.5-5.0 [facility] by calculation (mass/volume)2021-09-18 01:20:00 Test Item Value Reference Range Interpretation Comments Globulin (test code = 55177-7) 3.5 [facility] HealthSerum or plasma albumin/globulin mass [id number] 01:20:00 Test Item Value Reference Range Interpretation Comments Albumin/Globulin Ratio (test code = 1.3 1759-0) [facility] HealthSerum or plasma alkaline phosphatase measurement (enzymatic activity/volume)2021-09-18 01:20:00 Test Item Value Reference Range Interpretation Comments Alkaline Phosphatase (test code = 57 40-150 6768-6) [facility] 01:20:00 Test Item Value Reference Range Interpretation Comments Total Creatine Kinase (test code = 213 30-200 2157-6) [facility] [id number]-uVso7177-42-01 01:20:00 Test Item Value Reference Range Interpretation Comments Troponin I (test code = 77367-6) 0.02 0.00-0.03 [id number] 01:20:00 Test Item Value Reference Range Interpretation Comments Total Creatine Kinase (test code = 213 30-200 2157-6) [facility] count (number/volume)2021-09-18 01:20:00 Test Item Value Reference Range Interpretation Comments White Blood Count (test code = 6690-2) 11.9 4.5-11.5 [facility] HealthBlood erythrocytes automated count (number/volume)2021-09-18 01:20:00 Test Item [...] code = 4544-3) 41.5 39.0-52.5 [facility] HealthSodium TzvEf-aSmw6012-66-13 07:42:00 Test Item Value Reference Range Interpretation [...] Interpretation Comments Anion Gap (test code = 21601-0) 16 8-18 [facility] HealthSerum or plasma urea nitrogen measurement (mass/volume)2021-08-31 07:42:00 Test Item Value Reference Range Interpretation Comments Blood Urea Nitrogen (test code = 8 9-21 3094-0) [facility] HealthSerum or plasma creatinine measurement (mass/volume)2021-08-31 07:42:00 Test Item Value Reference Range Interpretation Comments Creatinine (test code = 2160-0) 0.8 0.7-1.3 [facility] HealthGFR/BSA.pred SerPl AUFS-[id number] 07:42:00 Test Item Value Reference Range Interpretation Comments Estimat Glomerular Filtration Rate 111 73-125 (test code = 70158-4) [facility] HealthSerum or plasma urea nitrogen/creatinine mass [id number] 07:42:00 Test Item Value Reference Range Interpretation Comments BUN/Creatinine Ratio (test code = 10 3097-3) [facility] HealthSerum or plasma glucose measurement (mass/volume)2021-08-31 07:42:00 Test Item Value Reference Range Interpretation Comments Glucose Level (test code = 2345-7) 129 60-100 [facility] HealthOsmolality SerPl [id number] 07:42:00 Test Item Value Reference Range Interpretation Comments Calculated Osmolality (test code = 279 55548-1) [facility] HealthSerum or plasma calcium measurement (mass/volume)2021-08-31 07:42:00 Test Item Value Reference Range Interpretation Comments Calcium Level (test code = 00657-1) 9.5 8.4-10.2 [facility] Health
[2022-02-08] MEDS ORDERED: CEFTRIAXONE 1000 MG/VIAL ONE (10:00)
[2022-02-08] MEDS ORDERED: FAMOTIDINE 20 MG/2 ML VIAL IV ONE (10:01)
[2022-02-08] MEDS ORDERED: NA CHLORIDE 0.9% 1,000 ML ONE (10:01)
[2022-02-08] MEDS ORDERED: ACETAMINOPHEN 325 MG/SUPP PR ONE (10:01)
[2022-02-08 10:05] LABS: Absolute Lymphocytes (CBC) 1.1 K/uL (0.7-4.9); Hematocrit 31.8 % (39.6-49.0); Lymphocytes % 14.7 % (15.3-44.8); MCV 88.5 fL (80-100); MPV 6.8 fL (7.6-11.3); RBC Red Blood Cell Count 3.59 M/uL (4.33-5.43)
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
[2022-02-08 10:35] LABS: Potassium 3.8 mmol/L (3.5-5.1); Troponin High Sensitivity 24.4 pg/mL (<58.9)
[2022-02-08 11:19] LABS: Protime INR 2.89
--- NOTE | 2022-02-08 11:31 | RAD REPORT ---
EXAM DESCRIPTION: Rommel Single View02/08/2022 10:15 am CLINICAL HISTORY: Chest pain COMPARISON: December 2021 FINDINGS: Areas subsegmental atelectasis right lung base. The left lung appears clear. The heart is normal size
--- NOTE | 2022-02-08 11:36 | RAD REPORT ---
EXAM DESCRIPTION: CT - Chest For Pe Angio - 02/08/2022 11:23 am CLINICAL HISTORY: Chest pain COMPARISON: December 2021 TECHNIQUE: Dynamically enhanced axial 3 mm thick images of the chest were obtained during administra tion of <100> mL Isovue 370 IV contrast. Coronal and oblique reconstruction images were generated and reviewed. Exam utilizes a protocol for optimal evaluation of pulmonary arterial tree. Maximum intensity projections 3D imaging was utilized All CT scans are performed using dose optimization technique as appropriate and may include automated exposure control or mA/KV adjustment according to patient size. FINDINGS: Bilateral pulmonary emboli have moderately resolved. No new thrombus seen. Main pulmonary, right and left main pulmonary arteries are clear A thoracic aortic aneurysm is not noted. A pleural effusion is not seen. A pericardial effusion is not seen. Mild right basilar atelectasis Fatty liver IMPRESSION: Moderate resolution in bilateral pulmonary emboli since prior exam
[2022-02-08] MEDS ORDERED: VALPROATE NA 500 MG/5 ML INJ IV ONE (12:21)
--- NOTE | 2022-02-08 12:25 | RAD REPORT ---
EXAM DESCRIPTION: USExtrem Venous W Compress Bil02/08/2022 12:14 pm CLINICAL HISTORY: Leg pain COMPARISON: none FINDINGS: Right common femoral vein is patent. Thrombus is present within the mid right superficial femoral vein extending into the right popliteal vein. No flow visualized. Veins are not compressible The left common femoral, superficial femoral, popliteal and posterior tibial veins are compressible a nd demonstrate augmentation. Doppler demonstrates good flow. Grayscale, color and spectral analysis performed on all vessels IMPRESSION: Relatively acute thrombus within the right superficial femoral and right popliteal veins which is occlusive
[2022-02-08] MEDS ORDERED: VALPROATE SODIUM INJ 500 MG in NA CHLORIDE 0.9% 100 ML IV ONE (13:00)
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
[2022-02-08] MEDS ORDERED: HYDROCODONE/APAP 5/325 MG TAB PO PRN (14:14)
[2022-02-08] MEDS ORDERED: ONDANSETRON 4 MG/2 ML VIAL IV PRN (14:14)
[2022-02-08] MEDS ORDERED: ALBUTEROL 2.5 MG/3 ML NEB SOL NEB PRN (14:14)
[2022-02-08] MEDS: IPRATROPIUM BROM 0.5MG/2.5ML NEB SCH ×2 (14:14→20:00)
[2022-02-08] MEDS ORDERED: ACETAMINOPHEN 500 MG TAB PO PRN (14:14)
[2022-02-08] MEDS: MORPHINE 2 MG/ML SYR IV PRN (14:27)
[2022-02-08 17:31] LABS: Urine Blood Negative (Negative); Urine Glucose Negative (Negative); Urine Protein Trace (Negative); Urine Specific Gravity 1.015 (1.005-1.030)
[2022-02-08] MEDS ORDERED: ALBUTEROL 2.5 MG/3 ML NEB SOL ONE (21:09)
[2022-02-09] MEDS: IPRATROPIUM BROM 0.5MG/2.5ML NEB SCH ×4 (02:10→20:15)
[2022-02-09 02:50] LABS: Absolute Lymphocytes (CBC) 1.7 K/uL (0.7-4.9); Hematocrit 26.7 % (39.6-49.0); Lymphocytes % 31.1 % (15.3-44.8); MCV 87.5 fL (80-100); MPV 6.8 fL (7.6-11.3); RBC Red Blood Cell Count 3.05 M/uL (4.33-5.43)
[2022-02-09 02:51] LABS: Protime INR 2.7
[2022-02-09 03:03] LABS: Magnesium 1.8 mg/dL (1.8-2.4); Phosphorus 3.5 mg/dL (2.5-4.9); Potassium 3.4 mmol/L (3.5-5.1)
[2022-02-09] MEDS ORDERED: POTASSIUM 25 MEQ EFFERV TAB ONE (06:36)
[2022-02-09] MEDS: POTASSIUM 25 MEQ EFFERV TAB PO SCH (06:42)
[2022-02-09] MEDS ORDERED: ALPRAZOLAM 0.5 MG TABLET PO ONE (08:24)
[2022-02-09] MEDS: MORPHINE 2 MG/ML SYR IV PRN ×3 (08:38→22:04)
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
--- NOTE | 2022-02-09 13:40 | EKG ---
Test Date: 2022-02-08 Test Time: 08:38:24 Gis Mapping Technician: SHANNAN MEASUREMENT RESULTS: Intervals: Rate: 75 IA: 142 QRSD: 98 QT: 398 QTc: 444 [place]field: P: 59 IA: 142 QRS: 37 T: -29 INTERPRETIVE STATEMENTS: Normal sinus rhythm T wave abnormality, consider anterior ischemia Abnormal ECG Compared to ECG 01/15/2022 21:17:25 Possible ischemia now present T-wave abnormality still present Electronically Signed On 02-09-22 13:38:27 CDT by Corey Whitlock
[2022-02-09 17:11] VITALS: BMI 29.0
[2022-02-10] MEDS: IPRATROPIUM BROM 0.5MG/2.5ML NEB SCH ×3 (01:40→14:00)
[2022-02-10 06:17] LABS: Protime INR 2.13
[2022-02-10] MEDS: POTASSIUM 25 MEQ EFFERV TAB PO SCH (09:05)
--- NOTE | 2022-02-10 10:05 | P.PN ---
Subjective Date of Service: 02/09/22 Chief Complaint: Chest pain Patient seems anxious. He denies any chest pain. His blood pressure has been soft, with systolic in the low 90s. Physical Examination - Vital Signs Temperature: 97.4 F Blood Pressure: 90/52 Pulse: 63 Respirations: 19 Pulse Ox (%): 99 Assessment And Plan - Current Problems (Diagnosis) (1) Chest pain Status: Acute (2) Lower extremity deep venous thrombosis Status: Acute (3) History of pulmonary embolus (PE) Status: Acute - Plan Physical Exam General: Alert, NAD. Neck: Supple, JVD not distended Respiratory: Clear to auscultation bilaterally, Normal air movement Cardiovascular: No edema, Regular rate/rhythm, Normal S1 S2 Gastrointestinal: Normal bowel sounds, Soft and benign, Non-distended, No tenderness Musculoskeletal: Right BKA Integumentary: No rashes, No cyanosis Neurological: Normal strength at 5/5 x4 extr, Cranial nerves 3-12 intact Plan: Troponin trended negative. Patient is currently chest pain-free. CTA thorax showed no evidence of PE. Continue anticoagulation with Coumadin and monitor PT and INR. Pain management as needed. Patient's home medication list not available for reconciliation. Staff is reaching out to [facility] to fax his medication list. Patient has no knowledge of his Coumadin dose. INR is currently therapeutic. Reconcile and continue other home medications.
[2022-02-11 01:54] VITALS: O2SAT 96
[2022-02-12 17:37] VITALS: BP 90/52; TEMP 97.4
== END 2022-02-10 16:59 | disposition home or self-care (01) | DRG 313 ==
LOC: ER 08:30 → ERHOLD 13:19 → OBSVTOIN 18:08 → 4TH 02-09 07:44
PROVIDERS: ADMIT Internal Medicine; ATTEND Internal Medicine
DX: R07.89 Other chest pain (principal); U07.1 COVID-19; I82.411 Acute embolism and thrombosis of right femoral vein; I82.431 Acute embolism and thrombosis of right popliteal vein; Z87.820 Personal history of traumatic brain injury; Z86.718 Personal history of other venous thrombosis and embolism; Z86.711 Personal history of pulmonary embolism; Z91.011 Allergy to milk products; Z89.511 Acquired absence of right leg below knee; Z79.899 Other long term (current) drug therapy
CPT/HCPCS: 36415; 71045; 71275; 80048; 80061; 80164; 81003; 83605; 83690; 83735; 84100; 84132; 84484; 85025; 85610; 85730; 87040; 93005; 93970; 94640; 94760; 96361; 96365; 96375; 99285; G0378; J2270; J2405; J7030; Q9967; U0003